=== PATIENT | female | born 1985 | race African-American/Black ===

== ENCOUNTER 2018-06-21 06:16 | Inpatient (IN) | payer BC, MEDICAID ==
[2018-06-21] MEDS ORDERED: ACETAMINOPHEN 325 MG TABLET PO ONE (07:15)
[2018-06-21] MEDS ORDERED: HYDROXYZINE PAMOATE 50 MG CAPSULE PO ONE (07:16)
[2018-06-21] MEDS ORDERED: ACETAMINOPHEN 325 MG TABLET ONE (07:17)
[2018-06-21] MEDS ORDERED: HYDROXYZINE PAMOATE 50 MG CAPSULE ONE (07:17)
[2018-06-21 07:59] LABS: URINE AMPHETAMINES SCREEN NEGATIVE; URINE BARBITURATES SCREEN NEGATIVE; URINE BENZODIAZEPINES SCREEN NEGATIVE; URINE COCAINE SCREEN NEGATIVE; URINE MARIJUANA (THC) SCREEN NEGATIVE; URINE METHADONE SCREEN NEGATIVE; URINE PHENCYCLIDINE SCREEN NEGATIVE
[2018-06-21 09:33] LABS: ABSOLUTE LYMPHOCYTES (AUTO) 1.2 10^3/uL (0.5-4.7); ABSOLUTE MONOCYTES (AUTO) 0.9 10^3/uL (0.1-1.4); BASOPHILS % (AUTO) 0.2 % (0-2); EOSINOPHILS % (AUTO) 0.1 % (0-6); HEMATOCRIT 31.6 % (36.0-47.0); HEMOGLOBIN 10.1 g/dL (12.0-15.5); LYMPHOCYTES % (AUTO) 10.6 % (13-45); MEAN CORPUSCULAR HEMOGLOBIN 25.4 pg (27.0-33.4); MEAN CORPUSCULAR VOLUME 79 fl (80-97); MONOCYTES % (AUTO) 7.9 % (3-13); PLATELET COUNT 221 10^3/uL (150-450); RED BLOOD COUNT 3.98 10^6/uL (3.72-5.28); RED CELL DISTRIBUTION WIDTH 15.6 % (11.5-14.0); SEGMENTED NEUTROPHILS % (AUTO) 81.2 % (42-78); TOTAL CELLS COUNTED % (AUTO) 100 %
[2018-06-21] MEDS ORDERED: NALBUPHINE HCL INJ 10 MG/1 ML AMPULE ONE ×2 (09:39→13:49)
[2018-06-21] MEDS ORDERED: PROMETHAZINE HCL INJ 25 MG/1 ML VIAL ONE ×2 (09:40→13:49)
[2018-06-21] MEDS: RINGERS SOLUTION,LACTATED 1,000 ML IV PRN ×2 (09:42→12:14)
[2018-06-21] MEDS ORDERED: ONDANSETRON HCL INJ/PF 4 MG/2 ML SDV ONE (10:26)
[2018-06-21] MEDS ORDERED: SUCCINYLCHOLINE CHLORIDE INJ 200 MG/10 ML VIAL ONE (10:26)
[2018-06-21] MEDS ORDERED: DEXAMETHASONE SOD PHOSPHATE INJ 4 MG/1 ML VIAL ONE (10:26)
[2018-06-21] MEDS ORDERED: LIDOCAINE 2% INJ-PF (20 MG/ML) 2 ML AMPUL ONE (10:26)
[2018-06-21] MEDS ORDERED: METOCLOPRAMIDE HCL INJ/PF 10 MG/2 ML SDV ONE (10:26)
[2018-06-21] MEDS ORDERED: PHENYLEPHRINE HCL INJ/PF 10 MG/1 ML SDV ONE (10:26)
[2018-06-21] MEDS ORDERED: OXYTOCIN 10 UNIT/ML VIAL ONE ×2 (10:39→19:16)
[2018-06-21] MEDS ORDERED: LIDOCAINE 1% INJ-PF (10 MG/ML) 30 ML SDV ONE (10:39)
[2018-06-21] MEDS ORDERED: MISOPROSTOL 0.2 MG TABLET ONE (10:39)
[2018-06-21] MEDS ORDERED: OXYTOCIN/NORMAL SALINE 20 UNIT/1,000 ML RTUINJ ONE (10:39)
[2018-06-21] MEDS ORDERED: OXYTOCIN/NORMAL SALINE 20 UNIT/1,000 ML RTUINJ IV PRN ×2 (11:50→20:33)
[2018-06-21 13:37] LABS: APPEARANCE,URINE TURBID; BILIRUBIN,URINE NEGATIVE (NEGATIVE); COLOR,URINE YELLOW; GLUCOSE, URINE NEGATIVE (NEGATIVE); KETONES,URINE TRACE mg/dL (NEGATIVE); LEUKOCYTE ESTERASE,URINE NEGATIVE (NEGATIVE); NITRITE,URINE NEGATIVE (NEGATIVE); PROTEIN,URINE 30 mg/dL (NEGATIVE); URINE SPECIFIC GRAVITY 1.024
[2018-06-21] MEDS ORDERED: PROMETHAZINE HCL INJ 25 MG/1 ML VIAL IV ONE (13:44)
[2018-06-21] MEDS ORDERED: NALBUPHINE HCL INJ 10 MG/1 ML AMPULE INJ ONE (13:46)
[2018-06-21 13:48] LABS: UR PRO/CREAT RATIO RESULT 0.1 mg/mg (0.0-0.2); URINE PROTEIN 11.4 mg/dL (<12)
[2018-06-21 13:55] LABS: ABSOLUTE MONOCYTES (AUTO) 0.9 10^3/uL (0.1-1.4); ABSOLUTE NEUT (AUTO) 10.6 10^3/uL (1.7-8.2); BASOPHILS % (AUTO) 0.2 % (0-2); HEMATOCRIT 30.1 % (36.0-47.0); HEMOGLOBIN 9.7 g/dL (12.0-15.5); MEAN CORPUSCULAR HEMOGLOBIN 25.3 pg (27.0-33.4); MEAN CORPUSCULAR HGB CONC 32.1 g/dL (32.0-36.0); MEAN CORPUSCULAR VOLUME 79 fl (80-97); MONOCYTES % (AUTO) 7.1 % (3-13); PLATELET COUNT 216 10^3/uL (150-450); RED BLOOD COUNT 3.82 10^6/uL (3.72-5.28); RED CELL DISTRIBUTION WIDTH 15.5 % (11.5-14.0); SEGMENTED NEUTROPHILS % (AUTO) 84.7 % (42-78); TOTAL CELLS COUNTED % (AUTO) 100 %; WHITE BLOOD COUNT 12.6 10^3/uL (4.0-10.5)
[2018-06-21 14:15] LABS: ALANINE AMINOTRANSFERASE 25 U/L (9-52); ALBUMIN 3.5 g/dL (3.5-5.0); ALKALINE PHOSPHATASE 137 U/L (38-126); ANION GAP 6 (5-19); ASPARTATE AMINO TRANSFERASE 15 U/L (14-36); BILIRUBIN,DIRECT 0.1 mg/dL (0.0-0.4); BILIRUBIN,TOTAL 0.4 mg/dL (0.2-1.3); BLOOD UREA NITROGEN 3 mg/dL (7-20); CALCIUM 8.6 mg/dL (8.4-10.2); CARBON DIOXIDE 21 mmol/L (22-30); CHLORIDE 109 mmol/L (98-107); GLUCOSE 103 mg/dL (75-110); POTASSIUM 3.9 mmol/L (3.6-5.0); SODIUM 136.4 mmol/L (137-145); TOTAL PROTEIN 6.2 g/dL (6.3-8.2); URIC ACID 3.8 mg/dL (2.5-6.2)
[2018-06-21 16:24] LABS: APPEARANCE,URINE CLEAR; BILIRUBIN,URINE NEGATIVE (NEGATIVE); COLOR,URINE YELLOW; GLUCOSE, URINE NEGATIVE (NEGATIVE); KETONES,URINE TRACE mg/dL (NEGATIVE); LEUKOCYTE ESTERASE,URINE NEGATIVE (NEGATIVE); NITRITE,URINE NEGATIVE (NEGATIVE); PROTEIN,URINE NEGATIVE (NEGATIVE); UROBILINOGEN,URINE NEGATIVE mg/dL (<2.0)
[2018-06-21 16:47] LABS: UR PRO/CREAT RATIO RESULT 0.2 mg/mg (0.0-0.2); URINE CREATININE 84.9 mg/dL (16-327); URINE PROTEIN 13.2 mg/dL (<12)
[2018-06-21] MEDS ORDERED: DIPHENHYDRAMINE HCL 50 MG/ML VIAL ONE (17:07)
[2018-06-21] MEDS ORDERED: DIPHENHYDRAMINE HCL 25 MG CAPSULE PO ONE (17:08)
--- NOTE | 2018-06-21 18:26 | L&D Progress Notes ---
PROGRESS NOTES Datetime Report Generated by CPN: 06/21/2018 18:25 PROGRESS NOTE Comment: Slightly uncomfortble with contractions Wants C/S Slow progress. will reevaluate 1-2 hours, if no progress will deliver VAGINAL EXAM Dilatation: 5 Effacement: 70 Station: -1 Contractions: 2-4 min LAST VAGINAL EXAM-NURSING Dilitation: 5.0 Dilitation: 5.0 Dilitation: 5.0 Dilitation: 2-3 Dilitation: 1.0 Effacement: 70 Effacement: 70 Effacement: 70 Effacement: 70 Effacement: thick Station: -1 Station: -1 Station: -2 Station: -2 Station: -2 FETUS A FHR - Baseline: 140 Accelerations: 15X15 Decelerations: Early FHR Category: Category I SIGNATURE SIGNATURE: [id number] Signature: with User ID: [email or web address] : I personally evaluated and examined the patient in conjunction with the MLP and agree with the assessment, treatment plan and disposition.
--- NOTE | 2018-06-21 18:30 | Admission Physical ---
Datetime Report Generated by CPN: 06/21/2018 18:29 CURRENT ADMISSION Chief Complaint: Uterine Contractions Admit Impression : Active Labor; Ruptured Membranes Admit Plan: Admit to Unit; Initiate Protocol ALLERGIES Medication Allergies: No Medication Allergies: No Known Allergies (06/21/2018) Latex: No Latex Allergies OBSTETRICAL HISTORY EDC: 06/15/2018 00:00 : 5 Para: 3 Term: 3 : 0 SAB: 1 IAB: 0 Ectopic: 0 Livin Cesareans: 1 VBACs: 1 Multiple Births: 0 Gestational Diabetes: No Rh Sensitization: No Incompetent Cervix: No TASIA: No Infertility: No ART Treatment: No Uterine Anomaly: No IUGR: No Hx Previous C/S: Yes Macrosomia: Yes Hx Loss/Stillborn: No PIH: No Hx : No Placenta Previa/Abruption: No Depression/PP Depression: No PTL/PROM: No Post Hemorrhage: No Current Procedures: Ultrasound Obstetrical History Comments: G1: 2010 , boy @ 37 weeks, 6 lbs G2: 2011 C/S for distress, girl @ 38 weeks, 7 lbs G3: 2013 SAB _7 weeks G4: 2014 , girl @ 40 weeks, 9 lbs G5: current SEE RECORDS Alcohol: No Marijuana : No Cocaine: No Other Illicit Drugs: No Cigarettes: Never Smoker. [id number] MEDICAL HISTORY Diabetes: No Blood Transfusion: No Pulmonary Disease (Asthma, TB): Yes Breast Disease: No Hypertension: No Parish Worker Surgery: No Heart Disease: No Hosp/Surgery: Yes Autoimmune Disorder: No Anesthetic Complications: No Kidney Disease: No Abnormal Pap Smear: No Neuro/Epilepsy: No Psychiatric Disorders: No Other Medical Diseases: Yes Hepatitis/Liver Disease: No Significant Family History: No Varicosities/Phlebitis: No Trauma/Violence : No Thyroid Dysfunction: No Medical History Comments: asthma, ENT surgery as a child, childbirth, PCOS INFECTIOUS HISTORY Gonorrhea: No Genital Herpes: No Chlamydia: Yes Tuberculosis: No Syphilis: No Hepatitis: No HIV/AIDS Exposure: No Rash or Viral Illness: No HPV: No Infectious History Comments: chlamydia 2018 (TEE negative) PHYSICAL EXAM General: Normal HEENT: Normal Neurologic: Normal Thyroid: Normal Heart: Normal Lungs: Normal Breast: Normal Back: Normal Abdomen: Normal Genitourinary Exam: Normal Extremities: Normal DTRs: Normal Pelvic Type: Adequate VAGINAL EXAM Dilatation: 5 Effacement: 70 Station: -1 Contraction Comments: 2-4 min FETUS A EGA: 40.6 Admit Comment: Term , admit, expect suscessufully VBACK PLANS FOR LABOR AND DELIVERY Labor and Delivery: Other, Specify Pain Management: Medications Feeding Preference: Breast Benefit of Breast Feed Discussed: Yes Circumcision: N/A INFORMED CONSENT Signature: with User ID: [email or web address] : I personally evaluated and examined the patient in conjunction with the MLP and agree with the assessment, treatment plan and disposition.
--- NOTE | 2018-06-21 18:54 | L&D Progress Notes ---
PROGRESS NOTES Datetime Report Generated by CPN: 06/21/2018 18:54 PROGRESS NOTE Impression: Arrest of Dilatation/Descent Plan: Deliver- Section Informed Consent Obtained: Section Delivery Comment: No cervical change, will proceed with C/S Risks, benefits, and alternatives discussed with patient, all questions answered. She verbalizes understanding and wishes to proceed VAGINAL EXAM Dilatation: 5 Effacement: 70 Station: -1 FETUS A FHR - Baseline: 140 Variability: Minimal - Undetectable to <=5bpm Accelerations: 10X10 Decelerations: Early FETUS C SIGNATURE: [id number] SIGNATURE: [id number] Signature: with User ID: [email or web address] : I personally evaluated and examined the patient in conjunction with the MLP and agree with the assessment, treatment plan and disposition.
[2018-06-21] MEDS ORDERED: CITRIC ACID/SODIUM CITRATE ORAL SOLN 15 ML UDCUP ONE (19:06)
[2018-06-21] MEDS ORDERED: CEFAZOLIN 2 GM/D5W RTU 2 GM/50 ML RTUPB IV ONE (19:06)
[2018-06-21] MEDS ORDERED: FENTANYL CITRATE INJ/PF 100 MCG/2 ML AMPUL ONE ×2 (19:16→21:00)
[2018-06-21] MEDS ORDERED: MIDAZOLAM 2 MG/2 ML INJ ONE (19:16)
[2018-06-21] MEDS ORDERED: EPHEDRINE SULFATE INJ 50 MG/1 ML AMPULE ONE (19:16)
[2018-06-21] MEDS ORDERED: FENTANYL CITRATE INJ/PF 250 MCG/5 ML AMPULE ONE (19:16)
[2018-06-21] MEDS ORDERED: PROPOFOL INJ 200 MG/20 ML VIAL IV ONE (19:16)
[2018-06-21] MEDS ORDERED: DIPHENHYDRAMINE HCL 50 MG/ML VIAL IV ONE (19:30)
[2018-06-21] MEDS ORDERED: ONDANSETRON HCL INJ/PF 4 MG/2 ML SDV IV PRN (19:58)
[2018-06-21] MEDS ORDERED: MORPHINE SULFATE 10 MG/ML INJ IV PRN (19:58)
[2018-06-21] MEDS ORDERED: FENTANYL CITRATE INJ/PF 100 MCG/2 ML AMPUL IV PRN ×2 (19:58)
[2018-06-21] MEDS ORDERED: MEPERIDINE HCL/PF INJ 25 MG/1 ML DISP.SYRIN IV PRN (19:58)
[2018-06-21] MEDS ORDERED: PROMETHAZINE HCL INJ 25 MG/1 ML VIAL IV PRN ×3 (19:58→20:33)
[2018-06-21] MEDS ORDERED: DIPHENHYDRAMINE HCL 50 MG/ML VIAL IV PRN (19:58)
[2018-06-21 20:24] LABS: ARTERIAL BLOOD BASE EXCESS -3.8 mmol/L; ARTERIAL BLOOD O2 SATURATION 45.8 % (94-98); ARTERIAL BLOOD PCO2 59.9 mmHg (35-45); ARTERIAL BLOOD PH 7.24 (7.35-7.45); ARTERIAL BLOOD PO2 29.8 mmHg (80-100); ARTERIAL BLOOD TOTAL CO2 26.8 mmol/L (21-25)
[2018-06-21 20:31] LABS: ARTERIAL BLOOD FIO2 CORD BLOOD
[2018-06-21] MEDS ORDERED: ACETAMINOPHEN 325 MG TABLET PO PRN (20:33)
[2018-06-21] MEDS ORDERED: HYDROMORPHONE HCL INJ/PF 2 MG/ML AMPULE IV PRN (20:33)
[2018-06-21] MEDS ORDERED: SIMETHICONE 80 MG TAB.CHEW PO PRN (20:33)
[2018-06-21] MEDS ORDERED: OXYCODONE-ACETAMINOPHEN 5-325 MG TABLET PO PRN (20:33)
[2018-06-21] MEDS ORDERED: DIPH/PERTUSS(ACELL)/TETANUS VAC/PF 0.5 ML SYR (>=10YO) IM PRN (20:33)
[2018-06-21] MEDS ORDERED: MEASLES,MUMPS&RUBELLA VACC/PF 0.5 ML VIAL SUBCUT PRN (20:33)
[2018-06-21] MEDS ORDERED: ACETAMINOPHEN 1,000 MG/100 ML RTUPB IV ONE (20:34)
[2018-06-21] MEDS ORDERED: MEPERIDINE HCL/PF INJ 25 MG/1 ML DISP.SYRIN ONE (20:38)
[2018-06-21] MEDS: FENTANYL CITRATE INJ/PF 100 MCG/2 ML AMPUL IV PRN ×2 (22:00→22:26)
[2018-06-22] MEDS: OXYCODONE-ACETAMINOPHEN 5-325 MG TABLET PO PRN ×5 (00:05→22:50)
[2018-06-22] MEDS: IBUPROFEN 800 MG TABLET PO SCH ×4 (00:06→17:35)
--- NOTE | 2018-06-22 00:08 | Delivery Summary ---
Del Sum A-C Datetime Report Generated by CPN: 06/22/2018 00:07 DELIVERY PERSONNEL DELIVERY PERSONNEL: [id number] Delivery Doctor:: Stephan Irwin MD Anesthesiologist:: Chandler Lora MD GAMING TABLE OPERATOR:: Silvina Dumont CRNA Labor and Delivery Nurse:: Estrellita Read RNoperations director Nurse:: Jeannine Crain RN Warehouse Person:: Estrellita Read RN Neonatal Nurse Practitioner:: MANUEL Oscar Nursery Nurse:: Kathy Riggs RN Nursery Nurse:: Idania Bonner RN Sort Operations Supervisor/FORENSIC COMPUTER EXAMINER: ST Asiya Sort Operations Supervisor/FORENSIC COMPUTER EXAMINER: Serena Fitch, ST MATERNAL INFORMATION Delivery Anesthesia: General Medications After Delivery: Pitocin Bolus-Please Comment Maternal Complications: None LABOR SUMMARY EDC: 06/15/2018 00:00 No. Babies in Womb: 1 Attempted: Yes Labor Anesthesia: None LABOR INFORMATION Reason for Induction: Not Applicable Onset of Labor: 06/21/2018 08:15 Oxytocin: Augmentation Group B Beta Strep: neg Antibiotics # of Doses: 0 Antibiotics Time of Last Dose: N/A Name of Antibiotic Given: N/A Steroids Given: None Reason Steroids Not Administered: Not Applicable MEMBRANES Membranes Rupture Method: Spontaneous Rupture of Membranes: 06/21/2018 09:25 Length of Rupture (hr): 10.30 Amniotic Fluid Color: Clear Amniotic Fluid Amount: Small Amniotic Fluid Odor: Normal STAGES OF LABOR Stage 3 hr: 0 Stage 3 min: 1 Total Time in Labor hr: 11 Total Time in Labor min: 29 VAGINAL DELIVERY Episiotomy: None Laceration #1: None Laceration Extension #1: N/A Laceration Repair: Not Applicable Sponge Count Correct: N/A Sharps Count Correct: N/A CSECTION DELIVERY Primary Indication: Failure to progress CSection Urgency: Non-Scheduled CSection Incidence: Repeat Labor: Labor Elective: Failed CSection Incision: Lower Uterine Transverse BABY A INFORMATION Delivery Date/Time: 06/21/2018 19:43 Method of Delivery: Born in Route : No : Failed Forceps: N/A Vacuum Extraction: N/A Shoulder Dystocia : No PRESENTATION/POSITION BABY A Presentation: Cephalic Cephalic Presentation: Vertex Breech Presentation: N/A PLACENTA INFORMATION BABY A Placenta Delivery Time : 06/21/2018 19:44 Placenta Method of Delivery: Manual Removal Placenta Status: Delivered SCORES BABY A Heart Rate 1 min: >100 bpm Resp Effort 1 min: Good Cry Reflex Irritability 1 min: Cough or Sneeze or Pulls Away Muscle Tone 1 min: Some Flexion of Extremities Color 1 min: Body Cameron, Extremities Blue Resuscitation Effort 1 min: Tactile Stimulation SCORE 1 MIN: 8 Heart Rate 5 min: >100 bpm Resp Effort 5 min: Good Cry Reflex Irritability 5 min: Cough or Sneeze or Pulls Away Muscle Tone 5 min: Active Motion Color 5 min: Body Cameron, Extremities Blue Resuscitation Effort 5 min: Tactile Stimulation SCORE 5 MIN: 9 INFORMATION BABY A Gestational Age at Delivery: 40.6 Gestational Status: Full Term- 39- 40.6 Weeks Infant Outcome : Liveborn Condition : Stable Infant Sex: Female IDENTIFICATION BABY A Infant Verification Date/Time: 06/21/2018 20:13 ID Band Number: [id number] Mother's Name Verified: Yes RN Verifying : KAnupam Brooks, RN Additional Verifying Personnel: BAnupam Crain, RN CORD INFORMATION BABY A No. Cord Vessels: 3 Nuchal Cord : N/A Cord Blood Taken: Yes-For Eval (Mom's Blood Type - or O+) Suction: None ASSESSMENT BABY A Physical Findings- Other: see nursery assessment Respirations: Appears Normal Skin to Skin: Yes Airplane Dispatcher/ALS Called : Yes Care By: Silvana riggs RN Transferred To: Nursery BABY B INFORMATION : N/A SIGNATURES Signature: with User ID: [email or web address] : I was personally available for consultation and serving as supervising physician for the MLP. : I personally evaluated and examined the patient in conjunction with the MLP and agree with the assessment, treatment plan and disposition.
--- NOTE | 2018-06-22 06:12 | OPERATIVE REPORT E ---
Operative Report NAME: PAOLA DUBOIS : 1985 AGE: 33Y DATE OF SURGERY: 06/21/2018 ROOM: 215 PREOPERATIVE DIAGNOSIS: INTRAUTERINE AT TERM, ACTIVE LABOR, WITH FAILURE TO DILATE. POSTOPERATIVE DIAGNOSIS: INTRAUTERINE AT TERM, ACTIVE LABOR, WITH FAILURE TO DILATE. OPERATION: Repeat low transverse section. SURGEON: RENETTA VIEYRA M.D COLOR CONTROL SUPERVISOR: *------* ANESTHESIA: General. ESTIMATED BLOOD LOSS: 700 mL FINDINGS: From a gravid uterus, there was a female delivered with Apgars of 8 and 9, weighing 7 pounds 15 ounces. It should be noted there was a massive band of adhesions from the anterior lower uterus to the bladder. PROCEDURE: I discussed the procedure with patient, which included risks, benefits, as well as alternatives. She was taken to the operating room, placed in a supine position, prepped and draped in the usual sterile manner. General anesthesia was then induced, and then using a sharp scalpel, a Pfannenstiel-type incision was made through an old scar through the skin and subcutaneous tissue to the fascia. The fascia was nicked in the midline and extended bilaterally with the scissors. At this point, the fascia was dissected off of the pyramidalis and recti muscles with both blunt and sharp dissection. The midline of the recti muscles identified, muscles , and the peritoneum was entered bluntly with the surgeon's fingers. The anterior side was then extended superiorly and inferiorly with pressure from the surgeon's hands. Next, the disposable self-retaining Serjio retractor was placed. The lower uterine segment was scored in a transverse manner and the midline was scored then with a knife and the hysterotomy incision was extended bilaterally with pressure from the surgeon's hands. The 's vertex was gently up-lifted out of the pelvis and delivered with a mild amount of fundal pressure. There remainder of the infant was then delivered without difficulty. After delivery of the , the pharynx and nasopharynx were thoroughly suctioned, the cord doubly clamped, and handed to the nursery personnel in attendance. The placenta was then manually removed and the uterus was wiped clean of all blood, blood clot, and membranes. The hysterotomy incision was repaired with #1 chromic in a running locking fashion in 2 layers, with the second closure layer used to invert the initial closure layer. There was a small amount of ooze noted from the midline of the repaired uterine incision, which was controlled with 1 interrupted suture of #1 chromic. The pelvis was then copiously washed with warm normal saline. All blood and blood clots were removed. The pad surrounding the incision was reinspected for bleeding. There was none noted. The self-retaining retractor was then removed and the fascia was reapproximated using 0 Vicryl x2, each of which was started from the corner of the incision, run toward the midline, and tied separately. The subcutaneous tissue was then thoroughly washed and bleeding at this point was controlled with the Bovie. The skin was then reapproximated using a subcuticular stitch of 4-0 Vicryl. All sponge, instrument, and needle counts were reported as correct x3. General anesthesia was then reversed in the operating room and she was subsequently transported to the recovery room in stable condition. DICTATING PHYSICIAN: RENETTA VIEYRA M.D. [id number] Y#: [id number] [id number] ID: [id number] JOB#: [id number] ACCT: [id number] cc:Tamika SKAGGS
[2018-06-22 06:54] LABS: HEMATOCRIT 24.3 % (36.0-47.0); MEAN CORPUSCULAR HEMOGLOBIN 25.3 pg (27.0-33.4); MEAN CORPUSCULAR HGB CONC 31.9 g/dL (32.0-36.0); MEAN CORPUSCULAR VOLUME 79 fl (80-97); PLATELET COUNT 224 10^3/uL (150-450); RED BLOOD COUNT 3.07 10^6/uL (3.72-5.28); RED CELL DISTRIBUTION WIDTH 15.8 % (11.5-14.0); WHITE BLOOD COUNT 22.4 10^3/uL (4.0-10.5)
[2018-06-22 07:30] LABS: HEMOGLOBIN 7.8 g/dL (12.0-15.5)
[2018-06-22] MEDS: FERROUS SULFATE 325 MG TABLET PO SCH ×3 (10:32→18:59)
[2018-06-22] MEDS: DOCUSATE SODIUM 100 MG CAPSULE PO SCH ×2 (10:32→17:34)
[2018-06-22] MEDS: PRENATAL VITAMIN W DHA CAPSULE PO SCH (10:32)
[2018-06-22] MEDS: ASCORBIC ACID 500 MG TABLET PO SCH ×2 (10:33→17:34)
--- NOTE | 2018-06-22 11:34 | PDOC PROGRESS REPORT ---
Subjective-OB Progress Note for:: 06/22/18 Subjective: Pt doing well, no concerns. She has been out of bed x 1, has not voided since FC removal. Ate crackers this morning, denies n/v. Denies Flatus. Denies heavy bleeding. Physical Exam (OB) Vital Signs: Temp Pulse Resp BP Pulse Ox 98.2 F 79 16 114/61 98 06/22/18 07:22 06/22/18 07:22 06/22/18 07:22 06/22/18 07:22 06/22/18 07:22 Intake & Output 06/21/18 06/22/18 06/23/18 06:59 06:59 06:59 Intake Total 1247 Balance 1247 Weight 102.7 kg - Dressing Removed: No - opsite Incision: Dressing, Draining - Lochia Lochia Amount: Small 10-25 ml Lochia Color: Rubra/Red - Abdomen Description: Soft, Round Hernia Present: No Fundal Description: Firm, Midline Fundal Height: u/u - u/2 Objective-Diagnostic Laboratory: 06/22/18 06:43 06/21/18 13:41 06/21/18 06/21/18 06/21/18 06:30 13:22 13:41 WBC RBC Hgb Hct MCV MCH MCHC RDW Plt Count Seg Neutrophils % Lymphocytes % Monocytes % Eosinophils % Basophils % Absolute Neutrophils Absolute Lymphocytes Absolute Monocytes Absolute Eosinophils Absolute Basophils Carbonic Acid HCO3/H2CO3 Ratio ABG pH ABG pCO2 ABG pO2 ABG HCO3 ABG O2 Saturation ABG Base Excess FiO2 Sodium 136.4 L Potassium 3.9 Chloride 109 H Carbon Dioxide 21 L Anion Gap 6 BUN 3 L Creatinine 0.51 L Est GFR ( Amer) > 60 Est GFR (Non-Af Amer) > 60 Glucose 103 Uric Acid 3.8 Calcium 8.6 Total Bilirubin 0.4 AST 15 ALT 25 Alkaline Phosphatase 137 H Total Protein 6.2 L Albumin 3.5 Urine Color YELLOW YELLOW Urine Appearance TURBID CLEAR Urine pH 5.0 5.0 Ur Specific [place] 1.024 1.010 Urine Protein 30 H NEGATIVE Urine Glucose (UA) NEGATIVE NEGATIVE Urine Ketones TRACE H TRACE H Urine Blood NEGATIVE NEGATIVE Urine Nitrite NEGATIVE NEGATIVE Ur Leukocyte Esterase NEGATIVE NEGATIVE Urine WBC (Auto) 4 1 Urine RBC (Auto) 2 6 06/21/18 06/21/18 06/22/18 13:41 19:45 06:43 WBC 12.6 H 22.4 H RBC 3.82 3.07 L Hgb 9.7 L 7.8 L Hct 30.1 L 24.3 L MCV 79 L 79 L MCH 25.3 L 25.3 L MCHC 32.1 31.9 L RDW 15.5 H 15.8 H Plt Count 216 224 Seg Neutrophils % 84.7 H Lymphocytes % 8.0 L Monocytes % 7.1 Eosinophils % 0.0 Basophils % 0.2 Absolute Neutrophils 10.6 H Absolute Lymphocytes 1.0 Absolute Monocytes 0.9 Absolute Eosinophils 0.0 Absolute Basophils 0.0 Carbonic Acid 1.80 H HCO3/H2CO3 Ratio 13:1 ABG pH 7.24 L ABG pCO2 59.9 H ABG pO2 29.8 L* ABG HCO3 25.0 H ABG O2 Saturation 45.8 L ABG Base Excess -3.8 FiO2 CORD BLOOD Sodium Potassium Chloride Carbon Dioxide Anion Gap BUN Creatinine Est GFR ( Amer) Est GFR (Non-Af Amer) Glucose Uric Acid Calcium Total Bilirubin AST ALT Alkaline Phosphatase Total Protein Albumin Urine Color Urine Appearance Urine pH Ur Specific [place] Urine Protein Urine Glucose (UA) Urine Ketones Urine Blood Urine Nitrite Ur Leukocyte Esterase Urine WBC (Auto) Urine RBC (Auto) Assessment and Plan(PN) - Assessment and Plan (1) Status post repeat low transverse section Is this a current diagnosis for this admission?: Yes (2) Limited care Qualifiers: Trimester: unspecified trimester Qualified Code(s): O09.30 - Supervision of with insufficient care, unspecified trimester Is this a current diagnosis for this admission?: Yes - Time Spent with Patient Time with patient: Less than 15 minutes Medications reviewed and adjusted accordingly: Yes - Disposition Anticipated Discharge: Home Within: within 24 hours
[2018-06-23] MEDS: IBUPROFEN 800 MG TABLET PO SCH ×5 (00:41→23:12)
[2018-06-23] MEDS: OXYCODONE-ACETAMINOPHEN 5-325 MG TABLET PO PRN ×4 (05:30→19:12)
[2018-06-23 06:40] LABS: ABSOLUTE EOSINOPHILS # (AUTO) 0.1 10^3/uL (0.0-0.6); ABSOLUTE LYMPHOCYTES (AUTO) 3.1 10^3/uL (0.5-4.7); ABSOLUTE MONOCYTES (AUTO) 1.2 10^3/uL (0.1-1.4); ABSOLUTE NEUT (AUTO) 12.9 10^3/uL (1.7-8.2); BASOPHILS % (AUTO) 0.2 % (0-2); EOSINOPHILS % (AUTO) 0.7 % (0-6); HEMATOCRIT 22.7 % (36.0-47.0); LYMPHOCYTES % (AUTO) 17.6 % (13-45); MEAN CORPUSCULAR HEMOGLOBIN 25.8 pg (27.0-33.4); MEAN CORPUSCULAR HGB CONC 32.1 g/dL (32.0-36.0); MEAN CORPUSCULAR VOLUME 80 fl (80-97); MONOCYTES % (AUTO) 7.2 % (3-13); PLATELET COUNT 225 10^3/uL (150-450); RED BLOOD COUNT 2.82 10^6/uL (3.72-5.28); RED CELL DISTRIBUTION WIDTH 15.9 % (11.5-14.0); SEGMENTED NEUTROPHILS % (AUTO) 74.3 % (42-78); TOTAL CELLS COUNTED % (AUTO) 100 %; WHITE BLOOD COUNT 17.3 10^3/uL (4.0-10.5)
[2018-06-23 07:05] LABS: HEMOGLOBIN 7.3 g/dL (12.0-15.5)
[2018-06-23] MEDS: FERROUS SULFATE 325 MG TABLET PO SCH ×3 (09:50→18:03)
[2018-06-23] MEDS: ASCORBIC ACID 500 MG TABLET PO SCH ×2 (09:50→18:01)
[2018-06-23] MEDS: DOCUSATE SODIUM 100 MG CAPSULE PO SCH ×2 (09:50→18:03)
[2018-06-23] MEDS: PRENATAL VITAMIN W DHA CAPSULE PO SCH (09:50)
--- NOTE | 2018-06-23 11:44 | PDOC PROGRESS REPORT ---
Subjective-OB Progress Note for:: 06/23/18 Subjective: 33yo s/p repeat secondary to failed ppd2. Pumping breast milk without difficulty. Reports she has not voided except for once yesterday after pritchard removal (400mL), also reports she is still not passing gas and has not walked or shower because when she attempted getting up her legs felt numb and has not attempted getting up since. Denies sob/lightheadedness/dizziness or other concerns. Physical Exam (OB) Vital Signs: Temp Pulse Resp BP Pulse Ox 98.6 F 78 16 111/60 100 06/23/18 03:20 06/23/18 03:20 06/23/18 03:20 06/23/18 03:20 06/23/18 03:20 Intake & Output 06/22/18 06/23/18 06/24/18 06:59 06:59 06:59 Intake Total 1247 560 Output Total 400 Balance 1247 160 Weight 102.7 kg - General General Appearance: Appears well In distress: None - PIH/Pre-Eclampsia Headache: Absent Epigastric Pain: No Visual Changes: No - Dressing Removed: No - opsite Incision: Dressing, Draining - small amount of blood noted Closure Type: Steri-Strips - Lochia Lochia Amount: Scant < 10 ml Lochia Color: Rubra/Red Lochia Note: pad is saturated pt states she has not changed it in over 24hrs - Abdomen Description: Soft, Round Hernia Present: No Bowel Sounds: Normoactive Flatus Presence: Absent Stool: No Fundal Description: Firm, Midline Fundal Height: u/u - u/2 Abdomen Note: nontender - Respiratory Respiratory Status: No respiratory distress Breath sounds: Clear - Cardiovascular Rhythm: Regular - Abdominal Distension: No distension - Extremities Upper extremity: Normal inspection Lower extremities: Normal inspection - Neurological Cognition: Normal Orientation: AAOx4 - Psychological Associated symptoms: Normal mood, Flat affect Objective-Diagnostic Laboratory: 06/23/18 06:19 06/21/18 13:41 06/23/18 06:19 WBC 17.3 H RBC 2.82 L Hgb 7.3 L Hct 22.7 L MCV 80 MCH 25.8 L MCHC 32.1 RDW 15.9 H Plt Count 225 Seg Neutrophils % 74.3 Lymphocytes % 17.6 Monocytes % 7.2 Eosinophils % 0.7 Basophils % 0.2 Absolute Neutrophils 12.9 H Absolute Lymphocytes 3.1 Absolute Monocytes 1.2 Absolute Eosinophils 0.1 Absolute Basophils 0.0 Assessment and Plan(PN) - Assessment and Plan (1) Acute blood loss anemia Is this a current diagnosis for this admission?: Yes Plan: increase dietary iron and FeSO4 BID, continue to monitor for s/s of decompensation (2) Anemia complicating , third trimester Is this a current diagnosis for this admission?: Yes Plan: increase dietary iron and FeSO4 BID (3) Failed attempted vaginal after previous delivery Is this a current diagnosis for this admission?: Yes Plan: delivered (4) Status post repeat low transverse section Is this a current diagnosis for this admission?: Yes Plan: routine pp care, continue to monitor for s/s of infection. Continue I&O tracking, will not be discharged today. Discussed need for ambulation and increasing po intake in order to void, will obtain bladder scan if unable to void. Bowel sounds normal-nurse to bring apple and prune juice, will also get up and bathe this am and walk. Reviewed warning s/s and need for continue stay at this time. Also reviewed with Dr. Young. (5) Limited care Qualifiers: Trimester: unspecified trimester Qualified Code(s): O09.30 - Supervision of with insufficient care, unspecified trimester Is this a current diagnosis for this admission?: Yes Plan: delivered - Time Spent with Patient Time with patient: Less than 15 minutes Medications reviewed and adjusted accordingly: Yes - Disposition Anticipated Discharge: Home Within: within 24 hours
[2018-06-23] MEDS ORDERED: BENZOCAINE/MENTHOL AEROSOL SPRAY 56 ML TOP PRN (13:19)
[2018-06-23] MEDS ORDERED: DIBUCAINE 1% OINTMENT 28 GM TP PRN (13:19)
[2018-06-24] MEDS: IBUPROFEN 800 MG TABLET PO SCH ×2 (05:27→12:51)
[2018-06-24] MEDS: OXYCODONE-ACETAMINOPHEN 5-325 MG TABLET PO PRN ×2 (05:56→10:10)
[2018-06-24] MEDS: FERROUS SULFATE 325 MG TABLET PO SCH (10:03)
[2018-06-24] MEDS: PRENATAL VITAMIN W DHA CAPSULE PO SCH (10:03)
[2018-06-24] MEDS: DOCUSATE SODIUM 100 MG CAPSULE PO SCH (10:03)
[2018-06-24] MEDS: ASCORBIC ACID 500 MG TABLET PO SCH (10:03)
--- NOTE | 2018-06-24 11:44 | PDOC PROGRESS REPORT ---
Subjective-OB Progress Note for:: 06/24/18 Subjective: Sitting up in bed, holding baby, feeling good, pain under control, ambulating, eating well Physical Exam (OB) Vital Signs: Temp Pulse Resp BP Pulse Ox 97.9 F 87 16 132/71 H 99 06/24/18 08:06 06/24/18 08:06 06/24/18 08:06 06/24/18 08:06 06/24/18 08:06 Intake & Output 06/23/18 06/24/18 06/25/18 06:59 06:59 06:59 Intake Total 560 450 Output Total 400 Balance 160 450 - PIH/Pre-Eclampsia DTR's: 2 + Clonus: Negative Headache: Absent Epigastric Pain: No Visual Changes: No - Dressing Removed: No Incision: Dressing Closure Type: Sutures - Lochia Lochia Amount: Scant < 10 ml Lochia Color: Rubra/Red - Abdomen Description: Firm Hernia Present: No Fundal Description: Firm Fundal Height: u/u - u/2 Objective-Diagnostic Laboratory: 06/23/18 06:19 06/21/18 13:41 Assessment and Plan(PN) - Assessment and Plan (1) Status post repeat low transverse section Is this a current diagnosis for this admission?: Yes (2) Limited care Qualifiers: Trimester: unspecified trimester Qualified Code(s): O09.30 - Supervision of with insufficient care, unspecified trimester Is this a current diagnosis for this admission?: Yes (3) Acute blood loss anemia Is this a current diagnosis for this admission?: Yes (4) Anemia complicating , third trimester Is this a current diagnosis for this admission?: Yes (5) Failed attempted vaginal after previous delivery Is this a current diagnosis for this admission?: Yes - Time Spent with Patient Time with patient: Less than 15 minutes Medications reviewed and adjusted accordingly: Yes - Disposition Anticipated Discharge: Home Within: within 24 hours
--- NOTE | 2018-06-24 11:50 | PDOC DISCHARGE SUMMARY ---
Final Diagnosis Discharge Date: 06/24/18 - Final Diagnosis (1) Status post repeat low transverse section Is this a current diagnosis for this admission?: Yes (2) Limited care Is this a current diagnosis for this admission?: Yes (3) Acute blood loss anemia Is this a current diagnosis for this admission?: Yes (4) Anemia complicating , third trimester Is this a current diagnosis for this admission?: Yes (5) Failed attempted vaginal after previous delivery Is this a current diagnosis for this admission?: Yes Discharge Data - Discharge Medication Prescriptions: Oxycodone HCl/Acetaminophen [Percocet 5-325 mg Tablet] 1 tab PO Q4HP PRN #20 tablet PRN Reason: Ferrous Sulfate [Feosol 325 mg Tablet] 325 mg PO TID #90 tablet Ibuprofen [Motrin 800 mg Tablet] 800 mg PO Q6 #30 tablet Home Medications: Pnv No.95/Ferrous Fum/Folic AC [ Caplet] 1 each PO DAILY 06/21/18 Ferrous Sulfate [Feosol 325 mg Tablet] 325 mg PO TID #90 tablet 06/24/18 Ibuprofen [Motrin 800 mg Tablet] 800 mg PO Q6 #30 tablet 06/24/18 Oxycodone HCl/Acetaminophen [Percocet 5-325 mg Tablet] 1 tab PO Q4HP PRN #20 tablet 06/24/18 Gestational Age: 40.6 Reason(s) for Admission: Onset of Labor - Pitocin augmentation, PROM Admission Note: revious C/S, desires JEANNE Procedures: NST, Ultrasound Intrapartum Procedure(s): : Low Cervical, Transverse - [place] Data Baby 1 Female at 1 minute: 8 at 5 minutes: 9 Home with Mother: Yes Complications: No - Diagnosis Test Laboratory: Temp Pulse Resp BP Pulse Ox 97.9 F 87 16 132/71 H 99 06/24/18 08:06 06/24/18 08:06 06/24/18 08:06 06/24/18 08:06 06/24/18 08:06 06/21/18 06/21/18 06/21/18 06:30 09:15 13:41 RBC 3.98 3.82 Hgb 10.1 L 9.7 L Hct 31.6 L 30.1 L Urine Opiates Screen NEGATIVE 06/22/18 06/23/18 06:43 06:19 RBC 3.07 L 2.82 L Hgb 7.8 L 7.3 L Hct 24.3 L 22.7 L Urine Opiates Screen - Discharge information/Instructions Discharge Activity: Activity As Tolerated, No Lifting Over 10 Pounds, No Lifting/Push/Pulling, Pelvic Rest Discharge Diet: As Tolerated, Regular Disposition: HOME, SELF-CARE Follow up with: [facility]: 6, Days - Make appt for Saturday
[2018-06-24 13:49] VITALS: BP 127/75
[2018-06-24 14:26] LABS: MEAN CORPUSCULAR HEMOGLOBIN 25.7 pg (27.0-33.4); MEAN CORPUSCULAR HGB CONC 32.2 g/dL (32.0-36.0); MEAN CORPUSCULAR VOLUME 80 fl (80-97); PLATELET COUNT 252 10^3/uL (150-450); RED BLOOD COUNT 2.91 10^6/uL (3.72-5.28); RED CELL DISTRIBUTION WIDTH 16.5 % (11.5-14.0); WHITE BLOOD COUNT 12.5 10^3/uL (4.0-10.5)
[2018-06-24 15:06] LABS: HEMATOCRIT 23.3 % (36.0-47.0); HEMOGLOBIN 7.5 g/dL (12.0-15.5)
== END 2018-06-24 18:45 | disposition home or self-care (01) | DRG 787 ==
LOC: LC 06:16 → LR 08:37 → 2S 22:33
PROVIDERS: ADMIT Obstetrics & Gynecology; ATTEND Obstetrics & Gynecology
PROC: 10D00Z1 Extraction of Products of Conception, Low, Open Approach (ICD-10-PCS; principal; 2018-06-21)
PROC: 4A1HXCZ Monitoring of Products of Conception, Cardiac Rate, External Approach (ICD-10-PCS; 2018-06-21)
DX: O62.2 Other uterine inertia (principal); D62 Acute posthemorrhagic anemia; O34.211 Maternal care for low transverse scar from previous cesarean delivery; Z28.21 Immunization not carried out because of patient refusal; O90.81 Anemia of the puerperium; Z3A.40 40 weeks gestation of pregnancy; Z37.0 Single live birth
CPT/HCPCS: 1961; 36415; 80053; 80307; 81001; 82570; 82803; 83615; 84156; 84550; 85025; 85027; 86592; 86850; 86900; 86901; 94760; 94799; J0131; J0330; J0690; J1100; J1200; J2175; J2250; J2300; J2370; J2405; J2550; J2590; J2704; J2765; J3010; J3490

== ENCOUNTER 2018-07-25 12:03 | Emergency (ER) | payer BC, MEDICAID ==
[2018-07-25 12:10] VITALS: BP 148/91
--- NOTE | 2018-07-25 12:58 | ER Document Report ---
HPI - HPI Time Seen by Provider: 07/25/18 12:35 Pain Level: Denies Context: Patient is a 33-year-old female who presents emergency department with an inquiry about a medication refill. She is on Ritalin, metformin, Prozac, and Xenical. She has been off her medications because she recently had a baby. She was unable to get into her primary care provider's office today and has an appointment for Saturday. She states that she is anxious and she feels angry at times. She denies any suicidal ideation or homicidal ideation. - CONSTITUTIONAL Constitutional: DENIES: Fever, Chills - EENT EENT: DENIES: Sore Throat - NEURO Neurology: DENIES: Headache - CARDIOVASCULAR Cardiovascular: DENIES: Chest pain - RESPIRATORY Respiratory: DENIES: Trouble Breathing, Coughing - GASTROINTESTINAL Gastrointestinal: DENIES: Abdominal Pain, Nausea, Diarrhea - URINARY Urinary: DENIES: Dysuria - REPRODUCTIVE Reproductive: DENIES: : - MUSCULOSKELETAL Musculoskeletal: DENIES: Extremity pain, Back Pain - DERM Skin Color: Normal Skin Problems: None Past Medical History - Social History Smoking Status: Never Smoker Chew tobacco use (# tins/day): No Drug Abuse: None Family History: Reviewed & Not Pertinent Patient has suicidal ideation: No Patient has homicidal ideation: No Renal/ Medical History: Denies: Hx Peritoneal Dialysis Psychiatric Medical History: Reports: Hx Depression Vertical Provider Document - CONSTITUTIONAL Exam Limitations: No Limitations - INFECTION CONTROL TRAVEL OUTSIDE OF THE [place] IN LAST 30 DAYS: No - HEENT HEENT: Atraumatic, Normocephalic - NECK Neck: Normal Inspection - RESPIRATORY Respiratory: No Respiratory Distress - CARDIOVASCULAR Cardiovascular: Regular Rhythm - MUSCULOSKELETAL/EXTREMETIES Musculoskeletal/Extremeties: FROM - NEURO Level of Consciousness: Awake, Alert, Appropriate Motor/Sensory: No Motor Deficit, No Sensory Deficit - DERM Integumentary: Warm, Dry Course - Re-evaluation Re-evalutation: 07/25/18 13:00 The patient would like a refill on her Ritalin and Prozac. I told her that I am unable to refill her Ritalin, but I can give her some Vistaril for home until she is able to see her primary care provider on Saturday. Since patient denies any suicidal or homicidal ideation, she is stable for discharge. She is in agreement's with this plan. Verbal discharge instructions were given to the patient. They verbalized understanding. They are stable for discharge. - Vital Signs Vital signs: Temp Pulse Resp BP Pulse Ox 99.1 F 64 16 148/91 H 96 07/25/18 12:08 07/25/18 12:08 07/25/18 12:08 07/25/18 12:08 07/25/18 12:08 Discharge - Discharge Clinical Impression: Medication refill, Anxiety Condition: Stable Disposition: HOME, SELF-CARE Additional Instructions: You were seen today in the emergency department for medication refill. Unfortunately due to the medications you are on, you need to see your primary care provider to have these medications refilled. Please show up to your appointment on Saturday so you can get your regular medications. In the meantime, you have been given Vistaril a medication for anxiety. Please take as directed. If you have worsening symptoms, feel like you want to hurt yourself or others, or have symptoms that are worrisome to you, please return to the emergency department. Prescriptions: Hydroxyzine Pamoate [Vistaril 50 mg Capsule] 50 mg PO Q6 PRN #10 capsule PRN Reason:
== END 2018-07-25 13:14 | disposition home or self-care (01) ==
LOC: ER 12:03
DX: Z76.0 Encounter for issue of repeat prescription (principal); F41.9 Anxiety disorder, unspecified; Z79.899 Other long term (current) drug therapy
CPT/HCPCS: 99281

== ENCOUNTER 2018-10-11 17:15 | Emergency (ER) | payer BC, MEDICAID ==
--- NOTE | 2018-10-11 17:38 | ER Document Report ---
HPI - HPI Patient complains to provider of: Lacerations to right arm right ankle pain Time Seen by Provider: 10/11/18 17:38 Onset: This morning - 30 this a.m. Quality of pain: Achy Severity: Severe Pain Level: 4 Context: She presents emergency department with small lacerations to her right elbow\arm right ankle pain. Patient reports she rolled her ankle and backed into a picture, that is how she cut her arm. Patient and were drinking alcohol and had a discussion. She reports she feels safe at home. She reports her tetanus is up to date. Declines pain medication. No other complaints such as fever vomiting diarrhea. Has not cleaned her wounds on her elbow Associated Symptoms: None Exacerbated by: Walking Relieved by: Denies Similar symptoms previously: No Recently seen / treated by doctor: No - REPRODUCTIVE LMP: 09/12 Reproductive: DENIES: : Past Medical History - General Information source: Patient Last Menstrual Period: last month - Social History Smoking Status: Current Every Day Smoker Cigarette use (# per day): Yes Frequency of alcohol use: Occasional Drug Abuse: None Lives with: Family Family History: Reviewed & Not Pertinent Patient has suicidal ideation: No Patient has homicidal ideation: No Renal/ Medical History: Denies: Hx Peritoneal Dialysis Psychiatric Medical History: Reports: Hx Depression Surgical Hx: Negative Vertical Provider Document - CONSTITUTIONAL Agree With Documented VS: Yes Exam Limitations: No Limitations General Appearance: WD/WN, No Apparent Distress - nontoxic looking - INFECTION CONTROL TRAVEL OUTSIDE OF THE [place] IN LAST 30 DAYS: No - HEENT HEENT: Atraumatic, Normocephalic - NECK Neck: Normal Inspection, Supple - RESPIRATORY Respiratory: No Respiratory Distress - CARDIOVASCULAR Cardiovascular: Regular Rate - MUSCULOSKELETAL/EXTREMETIES Musculoskeletal/Extremeties: MAEW, FROM, Tender - right ankle ttp, no obvious deformity, good pedal pulse, good cap refill - NEURO Level of Consciousness: Awake, Alert, Appropriate Motor/Sensory: No Motor Deficit - DERM Integumentary: Warm, Dry, Laceration - multiple small lacerations to right elbow, no active bleeding Course - Re-evaluation Re-evalutation: 10/11/18 18:26 X-ray negative for acute fracture lacerations do not need sutures but will be treated with Steri-Strips. Lacerations were cleaned well with normal saline and shur clens. No visible glass particles noted. Patient was instructed that we did not see any glass particles but some may still remain.. Patient was instructed on negative x-ray and also instructed on the importance of keeping her lacerations clean and follow-up with primary care provider. He verbalized understanding to all instructions. 10/11/18 18:55 Patient requesting postop shoe because her she will not fit over the Kehinde wrap. She declined a Grippi sock. Request granted for postop shoe. Carlito GARBER applied. - Vital Signs Vital signs: Temp Pulse Resp BP Pulse Ox 98.2 F 89 16 124/89 H 98 10/11/18 17:23 10/11/18 17:23 10/11/18 17:23 10/11/18 17:23 10/11/18 17:23 - Diagnostic Test Radiology reviewed: Image reviewed, Reports reviewed - neg xray Procedures - Immobilization Right Ankle Immobilizer type: Kehinde wrap, Post-op shoe Performed by: PCT Post-Proc Neuro Vasc Exam: Unchanged from pre-exam Alignment checked and good: Yes - Laceration/Wound Repair Right Elbow Wound length (cm): 0.5 - multiple small lacerations Wound's Depth, Shape: Superficial, Irregular Laceration pre-procedure: Shur-Clens applied Wound Repaired With: Steri-strips Discharge - Discharge Clinical Impression: lacerations right elbow Ankle pain, right Qualifiers: Chronicity: acute Qualified Code(s): M25.571 - Pain in right ankle and joints of right foot Condition: Stable Disposition: HOME, SELF-CARE Instructions: Kehinde Wrap ([facility]), Ice & Elevation ([facility]), Non-Sutured Laceration ([facility]), Care of Steri-Strip Closure ([facility]) Additional Instructions: *You have been evaluated for right ankle pain, right arm laceration *Maintain the kehinde wrap for comfort *Rest/Ice/Elevate ankle Monitor your lacerations for signs of infection such as increasing pain redness swelling discharge. Keep the area clean *Follow up with your primary care provider for a recheck within one week *Take tylenol as indicated for pain *Return to ED for worsening condition, changes, needs Monitor your blood pressure. Your blood pressure was elevated today. This may be because you were anxious, in pain or because you need medication. It is important to follow up with your primary care provider for full evaluation. Forms: Elevated Blood Pressure Referrals: ROSS RUST MD [Primary Care Provider] - Follow up in 3-5 days
--- NOTE | 2018-10-11 18:15 | RADIOLOGY REPORT (SQ) ---
EXAM DESCRIPTION: ANKLE RIGHT COMPLETE COMPLETED DATE/TIME: 10/11/2018 5:40 pm REASON FOR STUDY: twisted right ankle COMPARISON: None. EXAM PARAMETERS: NUMBER OF VIEWS: Three views. TECHNIQUE: AP, lateral and oblique radiographic images acquired of the right ankle. LIMITATIONS: None. FINDINGS: MINERALIZATION: Normal. BONES: No acute fracture or dislocation. No worrisome bone lesions. JOINTS: No effusion. SOFT TISSUES: Lateral soft tissue swelling. No radiopaque foreign body. OTHER: No other significant finding. IMPRESSION: NO FRACTURE. TECHNICAL DOCUMENTATION: JOB ID: [id number] [place]-[id number] 2010 [employer]- All Rights Reserved Reading location - IP/workstation name: [email or web address]
[2018-10-11 19:04] VITALS: BP 124/82
== END 2018-10-11 19:08 | disposition home or self-care (01) ==
LOC: ER 17:15
DX: S51.011A Laceration without foreign body of right elbow, initial encounter (principal); W22.8XXA Striking against or struck by other objects, initial encounter; M25.571 Pain in right ankle and joints of right foot; X50.0XXA Overexertion from strenuous movement or load, initial encounter; F17.210 Nicotine dependence, cigarettes, uncomplicated
CPT/HCPCS: 99283

== ENCOUNTER 2018-11-29 05:20 | Emergency (ER) | payer BC, MEDICAID ==
--- NOTE | 2018-11-29 07:08 | ER Document Report ---
ED General - General Chief Complaint: Vertigo Stated Complaint: DIZZINESS Time Seen by Provider: 11/29/18 06:46 Primary Care Provider: ROSS RUST MD [Primary Care Provider] - Follow up as needed TRAVEL OUTSIDE OF THE [place] IN LAST 30 DAYS: No - HPI Notes: Patient is a 33-year-old female who presents to the emergency department for evaluation of vertigo. She states it started back on November 08. That was her first menstruation after having her baby several months ago. She is no longer breast-feeding. She denies any tinnitus, no hearing loss. She states she has not really had any recent URIs. She denies any associated nausea with it. She states that rolling over in bed, moving her head position rapidly, seems to exacerbate the symptoms. She denies any recent head injuries. She denies any pain associated. - Related Data Allergies/Adverse Reactions: No Known Allergies Allergy (Verified 10/11/18 17:18) Past Medical History - General Information source: Patient - Social History Smoking Status: Never Smoker Frequency of alcohol use: None Drug Abuse: None Family History: Reviewed & Not Pertinent Patient has suicidal ideation: No Patient has homicidal ideation: No - Medical History Medical History: Other - PCOS Renal/ Medical History: Denies: Hx Peritoneal Dialysis Psychiatric Medical History: Reports: Hx Attention Deficit Hyperactivity Disorder, Hx Depression Review of Systems - Review of Systems Constitutional: No symptoms reported EENT: No symptoms reported Cardiovascular: No symptoms reported Respiratory: No symptoms reported Gastrointestinal: No symptoms reported Genitourinary: No symptoms reported Female Genitourinary: No symptoms reported Musculoskeletal: No symptoms reported Skin: No symptoms reported Neurological/Psychological: See HPI Physical Exam - Vital signs Vitals: Temp Pulse Resp BP Pulse Ox 98 F 86 16 139/86 H 98 11/29/18 05:21 11/29/18 05:21 11/29/18 05:21 11/29/18 05:21 11/29/18 05:21 - Notes Notes: Vital signs reviewed, please refer to chart. Head is normocephalic, atraumatic. Pupils equal round, reactive to light. Conjunctive are pink. Bilateral TMs are pearly wilder without effusion, good light reflex noted. Neck is supple without meningismus. Heart is regular rate and rhythm. Lungs are clear to auscultation bilaterally. Abdomen is soft, nontender, normoactive bowel sounds throughout. Extremities without cyanosis, clubbing. Posterior calves are nontender. Peripheral pulses are equal. Skin is warm and dry. Patient is awake and alert, oriented x3. She does have some horizontal nystagmus noted on exam. Otherwise cranial nerves II through XII are grossly intact without focal neurological deficits. Strength was 5/5 bilateral lower extremities. Reflexes are symmetrical. Intact finger nose pain, rapid alternating movements, [id number]. Course - Re-evaluation Re-evalutation: 11/29/18 07:01 Patient presents emergency department for evaluation. Her findings are most consistent with benign positional vertigo. We did discuss the Nas maneuver, meclizine, and the side effect profile associated with it. The patient's blood pressure is mildly elevated, otherwise her vital signs are normal. Her neurological exam is unremarkable with the exception of findings associated with benign positional vertigo. We will try her at home on meclizine. She is told that she may require ENT referral if her symptoms persist. She voiced understanding. She is to return to the ED with worsening or concerning symptoms of any sort. - Vital Signs Vital signs: Temp Pulse Resp BP Pulse Ox 97.8 F 82 18 113/63 99 11/29/18 07:50 11/29/18 07:50 11/29/18 07:50 11/29/18 07:50 11/29/18 07:50 Discharge - Discharge Clinical Impression: Benign paroxysmal positional vertigo Qualifiers: Laterality: unspecified laterality Qualified Code(s): H81.10 - Benign paroxysmal vertigo, unspecified ear Condition: Stable Disposition: HOME, SELF-CARE Instructions: Vertigo ([facility]) Additional Instructions: Rest, stay well-hydrated. Take meclizine as needed for dizziness. Watch for drowsiness with this medication. Follow-up with your primary care provider this week. Return to the emergency department with worsening or new concerning symptoms. Prescriptions: RX: Meclizine HCl 25 mg PO TID PRN #21 tab.chew PRN Reason: Dizziness Referrals: ROSS RUST MD [Primary Care Provider] - Follow up as needed
[2018-11-29] MEDS ORDERED: MECLIZINE HCL 25 MG TABLET PO ONE (07:44)
[2018-11-29 07:52] VITALS: BP 113/63
== END 2018-11-29 07:50 | disposition home or self-care (01) ==
LOC: ER 05:20
DX: H81.10 Benign paroxysmal vertigo, unspecified ear (principal)
CPT/HCPCS: 99283

== ENCOUNTER 2019-01-02 04:48 | Emergency (ER) | payer BC, MEDICAID ==
[2019-01-02] MEDS ORDERED: FAMOTIDINE INJ/PF 20 MG/2 ML SDV IV ONE (05:10)
[2019-01-02] MEDS ORDERED: METHYLPREDNISOLONE INJ 125 MG/2 ML SDV IV ONE (05:10)
[2019-01-02] MEDS ORDERED: EPINEPHRINE INJ/PF 1 MG/1 ML AMPULE IM ONE (05:10)
[2019-01-02] MEDS ORDERED: DIPHENHYDRAMINE HCL 50 MG/ML VIAL IV ONE (05:10)
--- NOTE | 2019-01-02 05:20 | ER Document Report ---
ED Allergic Reaction - General Chief Complaint: Insect Bite Stated Complaint: BUG BITE Time Seen by Provider: 01/02/19 05:06 Primary Care Provider: ROSS RUST MD [Primary Care Provider] - Follow up as needed Notes: Patient is a 33-year-old female that comes emergency department for chief complaint of itching all over, developing rash mainly on her back, chest, and extremities, and she also started getting swelling of the throat with tightness sensation, swelling of the lips, and swelling of the eyelids. Patient states she felt what seemed to be either an insect bite or insect sting over her left thigh area while she was in bed, shortly after that she developed the symptoms. She did not visualize any insect. She has not had this before but this is in multiple family members. She denies any daily medications or past medical history. She denies . TRAVEL OUTSIDE OF THE [place] IN LAST 30 DAYS: No - Related Data Allergies/Adverse Reactions: No Known Allergies Allergy (Verified 10/11/18 17:18) Past Medical History - General Information source: Patient, Relative - Social History Smoking Status: Never Smoker Frequency of alcohol use: None Drug Abuse: None Lives with: Family Family History: Reviewed & Not Pertinent Renal/ Medical History: Denies: Hx Peritoneal Dialysis Psychiatric Medical History: Reports: Hx Attention Deficit Hyperactivity Disorder, Hx Depression - Immunizations Immunizations up to date: Yes Hx Diphtheria, Pertussis, Tetanus Vaccination: Yes Review of Systems - Review of Systems Constitutional: No symptoms reported EENT: See HPI Cardiovascular: No symptoms reported Respiratory: No symptoms reported Gastrointestinal: No symptoms reported Genitourinary: No symptoms reported Female Genitourinary: No symptoms reported Musculoskeletal: No symptoms reported Skin: See HPI Hematologic/Lymphatic: No symptoms reported Neurological/Psychological: No symptoms reported Physical Exam - Vital signs Vitals: Temp Pulse Resp BP Pulse Ox 97.8 F 133 H 19 150/95 H 95 01/02/19 04:50 01/02/19 04:50 01/02/19 04:50 01/02/19 04:50 01/02/19 04:50 - Notes Notes: GENERAL: Alert, flushed, uncomfortable and slightly restless HEAD: Normocephalic, atraumatic. EYES: Pupils equal, round, and reactive to light. Extraocular movements intact. Puffy upper eyelids bilaterally ENT: Oral mucosa moist, tongue midline. Lips are both slightly puffy. Or opharynx unremarkable. Airway patent. Uvula normal. Voice is slightly muffled. NECK: Full range of motion. Supple. Trachea midline. LUNGS: Clear to auscultation bilaterally, no wheezes, rales, or rhonchi. No respiratory distress. HEART: tachycardia, normal rhythm, no murmur ABDOMEN: Soft, non-tender. Non-distended. Bowel sounds present in all 4 quadrants. GENITOURINARY: Deferred EXTREMITIES: Moves all 4 extremities spontaneously. No edema, normal radial and dorsalis pedis pulses bilaterally. No cyanosis. BACK: no cervical, thoracic, lumbar midline tenderness. No saddle anesthesia, normal distal neurovascular exam. Moves all extremities in full range of motion. NEUROLOGICAL: Alert and oriented x3. Normal speech. Cranial nerves II through XII grossly intact. PSYCH: Normal affect, normal mood. SKIN: Scattered urticaria over the chest, back, legs, arms Course - Re-evaluation Re-evalutation: 01/02/19 05:30 Patient is not significantly improved. Her voice no longer sounds slightly muffled, she has significant resolution of the lips and eyelids, the rash is beginning to fade. Patient states she feels much better. She will be monitored closely. 01/02/19 06:18 Patient has been reevaluated twice. Currently she is asymptomatic. Patient will continue to be monitored. Patient reevaluated again, symptoms have completely resolved except for very mild puffiness of the upper eyelids which is still improved from prior. Patient has been here for about 2-1/2 hours. She is requesting to leave. She has had only improvement of symptoms and no new symptoms. She has no hives, no muffled voice, no other concerning findings at this time. She will be placed on steroids, antihistamines, provided with EpiPen, discussed follow-up and return precautions. Patient states understanding and agreement. - Vital Signs Vital signs: Temp Pulse Resp BP Pulse Ox 97.8 F 133 H 20 119/66 96 01/02/19 04:50 01/02/19 04:50 01/02/19 07:01 01/02/19 07:01 01/02/19 07:01 Critical Care Note - Critical Care Note Total time excluding time spent on procedures (mins): 35 - Anaphylaxis Comments: Please allow 35 minutes of critical care time for evaluation and management of patient with anaphylaxis including swelling of the throat, face, and hives. Interventions including epinephrine, steroids, antihistamines. Multiple re- evaluations performed. Time spent discussing details at length with patient. Discharge - Discharge Clinical Impression: Anaphylaxis Qualifiers: Encounter type: initial encounter Qualified Code(s): T78.2XXA - Anaphylactic shock, unspecified, initial encounter Condition: Stable Disposition: HOME, SELF-CARE Additional Instructions: Unfortunately you had anaphylaxis from what appears to be an insect bite or sting. I recommend you take the prednisone as prescribed to completion, the cetirizine and famotidine for 1 week. Follow-up with primary care. In the event of a severe allergic reaction (swelling of the face, tongue, throat, etc.) take the epinephrine pen and return immediately Prescriptions: Cetirizine HCl [24Hour Allergy] 10 mg PO DAILY #30 tablet Epinephrine [Epipen 2-Otis] 0.3 mg IM ASDIR PRN #1 packet PRN Reason: Famotidine [Pepcid 20 mg Tablet] 20 mg PO BID #14 tablet Prednisone [Deltasone 10 mg Tablet] 10 mg PO ASDIR PRN #21 tablet PRN Reason: Referrals: ROSS RUST MD [Primary Care Provider] - Follow up as needed
[2019-01-02 07:33] VITALS: BP 119/66
== END 2019-01-02 07:44 | disposition home or self-care (01) ==
LOC: ER 04:48
DX: T78.2XXA Anaphylactic shock, unspecified, initial encounter (principal); R09.89 Other specified symptoms and signs involving the circulatory and respiratory systems; L50.9 Urticaria, unspecified; R22.0 Localized swelling, mass and lump, head
CPT/HCPCS: 99291; 96372; 96374; 96375; J1200; J0171; J2930; S0028

== ENCOUNTER 2020-03-30 19:45 | Inpatient (IN) | payer MEDICAID ==
[2020-03-30] MEDS ORDERED: ACETAMINOPHEN 325 MG TABLET ONE (22:23)
[2020-03-30] MEDS ORDERED: ACETAMINOPHEN 325 MG TABLET PO PRN (22:26)
[2020-03-30 23:11] LABS: ABSOLUTE EOSINOPHILS # (AUTO) 0.1 10^3/uL (0.0-0.6); ABSOLUTE MONOCYTES (AUTO) 0.8 10^3/uL (0.1-1.4); ABSOLUTE NEUT (AUTO) 5.3 10^3/uL (1.7-8.2); BASOPHILS % (AUTO) 0.4 % (0-2); EOSINOPHILS % (AUTO) 0.7 % (0-6); HEMATOCRIT 25.5 % (36.0-47.0); HEMOGLOBIN 8.5 g/dL (12.0-15.5); LYMPHOCYTES % (AUTO) 24.3 % (13-45); MEAN CORPUSCULAR HEMOGLOBIN 24.5 pg (27.0-33.4); MEAN CORPUSCULAR HGB CONC 33.2 g/dL (32.0-36.0); MEAN CORPUSCULAR VOLUME 74 fl (80-97); MONOCYTES % (AUTO) 9.6 % (3-13); PLATELET COUNT 199 10^3/uL (150-450); RED BLOOD COUNT 3.46 10^6/uL (3.72-5.28); RED CELL DISTRIBUTION WIDTH 16.4 % (11.5-14.0); TOTAL CELLS COUNTED % (AUTO) 100 %; WHITE BLOOD COUNT 8.2 10^3/uL (4.0-10.5)
--- NOTE | 2020-03-31 04:43 | Admission Physical ---
Datetime Report Generated by CPN: 03/31/2020 04:42 CURRENT ADMISSION Chief Complaint: Sent from OB Office for Evaluation and Treatment - Please Specify Chief Complaint Other: at 40.2 wks EGA who was sent from OB office for labor check/NST. She had non-reactive NST in office. Patient arrived here around 8 pm and had eaten at 6-6:30 pm. Her NST at that time was good but she was found to be 40.2 weeks EGA and hx of three prior CS. She had poor care with large gap in care between 19-36 weeks. DIscussed with her and reports she originally wanted to but now wants a RCS scheduled. SInce she is post dates and ate earlier, I will arrange for RCS in the AM. Rapid covid testing done. ALLERGIES Medication Allergies: No Medication Allergies: No Known Allergies (03/30/2020) Latex: No Latex Allergies OBSTETRICAL HISTORY EDC: 03/29/2020 00:00 : 5 Para: 4 Term: 4 : 0 SAB: 0 IAB: 0 Livin Cesareans: 2 Gestational Diabetes: No Rh Sensitization: No Incompetent Cervix: No TASIA: No Infertility: No ART Treatment: No Uterine Anomaly: No IUGR: No Hx Previous C/S: Yes Macrosomia: No Hx Loss/Stillborn: No PIH: No Hx : No Placenta Previa/Abruption: No Depression/PP Depression: No PTL/PROM: No Post Hemorrhage: No Current Procedures: Ultrasound; NST SEE RECORDS Alcohol: No Marijuana : No Cocaine: No Other Illicit Drugs: No Cigarettes: Never Smoker. [id number] MEDICAL HISTORY Diabetes: No Blood Transfusion: No Pulmonary Disease (Asthma, TB): No Breast Disease: No Hypertension: No Fabrication Operator Surgery: No Heart Disease: No Hosp/Surgery: No Autoimmune Disorder: No Anesthetic Complications: No Kidney Disease: No Abnormal Pap Smear: No Neuro/Epilepsy: No Psychiatric Disorders: Yes Other Medical Diseases: No Hepatitis/Liver Disease: No Significant Family History: No Varicosities/Phlebitis: No Trauma/Violence : No Thyroid Dysfunction: No Medical History Comments: ADHD INFECTIOUS HISTORY Gonorrhea: No Genital Herpes: No Chlamydia: No Tuberculosis: No Syphilis: No Hepatitis: No HIV/AIDS Exposure: No Rash or Viral Illness: No HPV: No PHYSICAL EXAM General: Normal HEENT: Normal Neurologic: Normal Thyroid: Normal Heart: Normal Lungs: Normal Breast: Normal Back: Normal Abdomen: Normal Genitourinary Exam: Normal Extremities: Normal DTRs: Normal Pelvic Type: Adequate Vital Signs: Reviewed MEMBRANES Pooling: Negative FETUS A EGA: 40.2 Monitoring: External US FHR- Baseline: 155 Variability: Moderate 6-25bpm Accelerations: 15X15 FHR Category: Category I Presentation: Oblique Admit Comment: at 40.2 wks EGA by 7 weeks US now post dates and history of three prior CSs. She had Non-reacitve NST but currently reactive in triage -Admit to LDR for RCS as she is post dates now and has poor PNC f/u -Patient ate at 6-630pm. Plan for NPO after midnight. -IVFs: LR at 125cc/hr -abdominal prep -Ancef 2 gms IV prior to OR -Plan for repeat CS in am PLANS FOR LABOR AND DELIVERY Feeding Preference: Breast INFORMED CONSENT Informed Consent Obtained: Section Delivery; Risks, Benefits and Alternatives Discussed Signature: with User ID: Solomon : with User ID: [email or web address]
[2020-03-31] MEDS ORDERED: RINGERS SOLUTION,LACTATED 1,000 ML IV ONE ×2 (06:00→07:00)
[2020-03-31] MEDS ORDERED: CEFAZOLIN SODIUM 2 GM in DEXTROSE 5%-WATER 50 ML IV PRN (06:00)
[2020-03-31] MEDS ORDERED: CEFAZOLIN 2 GM/D5W RTU 2 GM/50 ML RTUPB IV ONE (06:56)
[2020-03-31] MEDS ORDERED: CITRIC ACID/SODIUM CITRATE ORAL SOLN 15 ML UDCUP ONE (06:56)
[2020-03-31] MEDS ORDERED: NORMAL SALINE 250 ML IV PRN ×2 (07:16)
[2020-03-31] MEDS ORDERED: CITRIC ACID/SODIUM CITRATE ORAL SOLN 15 ML UDCUP PO PRN (07:32)
[2020-03-31 07:43] LABS: APPEARANCE,URINE TURBID; BILIRUBIN,URINE NEGATIVE (NEGATIVE); COLOR,URINE YELLOW; GLUCOSE, URINE NEGATIVE (NEGATIVE); KETONES,URINE NEGATIVE (NEGATIVE); LEUKOCYTE ESTERASE,URINE NEGATIVE (NEGATIVE); NITRITE,URINE NEGATIVE (NEGATIVE); PROTEIN,URINE 30 mg/dL (NEGATIVE); URINE SPECIFIC GRAVITY 1.021
[2020-03-31] MEDS ORDERED: EPHEDRINE SULFATE INJ 50 MG/1 ML AMPULE ONE (07:58)
[2020-03-31] MEDS ORDERED: OXYTOCIN 10 UNIT/ML VIAL ONE (07:58)
[2020-03-31] MEDS ORDERED: ACETAMINOPHEN 1,000 MG/100 ML RTUPB IV ONE (07:58)
[2020-03-31] MEDS ORDERED: PHENYLEPHRINE HCL INJ/PF 10 MG/1 ML SDV ONE (07:58)
[2020-03-31] MEDS ORDERED: MIDAZOLAM 2 MG/2 ML INJ ONE (07:58)
[2020-03-31] MEDS ORDERED: FENTANYL CITRATE INJ/PF 100 MCG/2 ML AMPUL ONE (07:58)
[2020-03-31] MEDS ORDERED: ONDANSETRON HCL INJ/PF 4 MG/2 ML SDV ONE (07:58)
[2020-03-31] MEDS ORDERED: KETOROLAC TROMETHAMINE INJ/PF 30 MG/1 ML SDV ONE (07:58)
[2020-03-31] MEDS ORDERED: OXYTOCIN/0.9 % SODIUM CHLORIDE 30 UNIT/500 ML RTUINJ ONE (07:58)
[2020-03-31] MEDS ORDERED: DEXAMETHASONE SOD PHOSPHATE INJ 4 MG/1 ML VIAL ONE (07:59)
[2020-03-31] MEDS ORDERED: HYDROMORPHONE HCL INJ/PF 2 MG/ML AMPULE ONE ×2 (07:59→10:36)
[2020-03-31] MEDS ORDERED: OXYCODONE-ACETAMINOPHEN 5-325 MG TABLET PO PRN (08:00)
[2020-03-31] MEDS ORDERED: RINGERS SOLUTION,LACTATED 1,000 ML IV PRN (08:00)
[2020-03-31] MEDS ORDERED: ACETAMINOPHEN 325 MG TABLET PO PRN (08:00)
[2020-03-31] MEDS ORDERED: MEASLES,MUMPS&RUBELLA VACC/PF 0.5 ML VIAL SUBCUT PRN (08:00)
[2020-03-31] MEDS ORDERED: OXYTOCIN/0.9 % SODIUM CHLORIDE 30 UNIT/500 ML RTUINJ IV PRN (08:00)
[2020-03-31] MEDS ORDERED: DIPH/PERTUSS(ACELL)/TETANUS VAC/PF 0.5 ML SYR (>=10YO) IM PRN (08:00)
[2020-03-31 08:09] LABS: URINE AMPHETAMINES SCREEN NEGATIVE; URINE BARBITURATES SCREEN NEGATIVE; URINE BENZODIAZEPINES SCREEN NEGATIVE; URINE COCAINE SCREEN NEGATIVE; URINE MARIJUANA (THC) SCREEN NEGATIVE; URINE METHADONE SCREEN NEGATIVE; URINE PHENCYCLIDINE SCREEN NEGATIVE
[2020-03-31] MEDS ORDERED: PROPOFOL INJ 200 MG/20 ML VIAL IV ONE (08:30)
[2020-03-31] MEDS ORDERED: MEPERIDINE HCL/PF INJ 25 MG/1 ML DISP.SYRIN IV PRN (09:31)
--- NOTE | 2020-03-31 09:37 | Operative Report ---
Operative Report DATE OF SURGERY: 03/31/20 PREOPERATIVE DIAGNOSIS: Intrauterine at 40.3 wks. History of 3 prior sections. Severe anemia. Poor care POSTOPERATIVE DIAGNOSIS: Intrauterine at 40.3 wks. History of 3 prior sections. Severe anemia. Poor care. Scar tissue between fascia and anterior abdominal wall-dense OPERATION: Repeat section SURGEON: SAAD WALSH ANESTHESIA: GA TISSUE REMOVED OR ALTERED: Placenta COMPLICATIONS: None ESTIMATED BLOOD LOSS: 1000 INTRAOPERATIVE FINDINGS: Large uterus with multiple small fibroids all less than 1 cm that I could see. Anterior placenta. Viable female infant with Apgars of 8 and 9 at one and five minutes respectfully. Large amount of clear amniotic fluid PROCEDURE: IV fluids: per anesthesia record Urinary output: 250 cc Findings: Large uterus multiple small fibroids all less than 1 cm, bilateral fallopian tubes and ovaries. Placenta grossly normal. Viable female infant with Apgars of 8 and 9, at 1 and 5 minutes respectively. Dense scar tissue between rectus fascia and muscles. Position: To recovery room in stable condition Description of procedure: The patient was taken to the operating room and general anesthesia was administered and found to be adequate. She was then placed on the OR table in the supine position with a slight leftward tilt. Patient was prepped and draped in usual sterile fashion. Ancef 2 gms was given IV prior to the procedure for infection prophylaxis. Timeout was taken. A Pfannenstiel skin incision was then made approximately 3 cm above the pubic symphysis and carried down to level the rectus fascia. The rectus fascia was then nicked in the midline with a scalpel and the fascial incision was extended laterally with use of curved Jimenez scissors. The rectus fascia was then grasped with 2 Kocker clamps elevated and the underlying rectus muscle was dissected off both bluntly and sharply. Scar tissue noted as above. Any bleeding controlled with cautery. The rectus muscles were then split in the midline and the peritoneum was entered. The peritoneal incision was then extended by manually stretching the peritoneum. The bladder blade was positioned. The bladder was noted to be out of harm's way. A scalpel was then used in the lower uterine for the hysterotomy, slowly until amniotomy was obtained a large amount of fluid was noted. The uterine incision was then manually stretched. The was noted to be in vertex postion -deep in the pelvis. Using a hand deep in pelvis, the head was elevated and brought to the hysterotomy incision. The head then delivered with minmal difficulty and a Kiwi was used to guide the head to the hysterotomy incision. No pop-offs. The shoulders and the rest of the body followed immediately. The cord was cut clamped and the was handed off to the nurse awaiting. was crying prior to hand off. The placenta was manually delivered. Using a lap gauze the uterus was cleared of all clots and debris. The uterus was then exteriorized and a bladder blade was repositioned. The uterine incision was then closed with 0 Chromic suture in a running locked fashion. A second layer of the same suture was used in a running locked imbricated fashion. The uterine incision was inspected and one area just left of midline was oozing. A box stitch was placed and then noted to be hemostatic. Retractor was removed. The posterior aspect of the uterus was then inspected and anatomy was seen as above. The uterus was returned to its normal anatomic position within the abdominal cavity. Warm saline irrigation was used to clear all clots and debris from the abdomen. The uterine incision was inspected once more and noted to remain hemostatic. The bladder blade was removed and the peritoneum was closed with 2-0 chromic in a running fashion. The rectus muscles were then reapproximated and the rectus fascia was closed with a #0 loooped PDS in a running fashion. Some oozing of scar tissue and muscle stuck to fascia noted and bovie was used along with surgiseal to obtain hemostasis. The subcutaneous tissue was then inspected and any bleeding was controlled with Bovie electrocautery. The subcutaneous tissue was then closed with 2-0 Plain Gut suture in a running fashion. The skin was then closed with 4-0 Monocryl in a running subcuticular fashion. The skin incision was then clean dried and Dermabond was applied over the skin incision. All instrument sponge and needle counts were correct x3 for the procedure the patient tolerated the procedure well. She will proceed to recovery room in stable condition
[2020-03-31] MEDS ORDERED: MEPERIDINE HCL/PF INJ 25 MG/1 ML DISP.SYRIN ONE (09:55)
[2020-03-31] MEDS: HYDROMORPHONE HCL INJ/PF 2 MG/ML AMPULE IV PRN ×3 (10:38→20:49)
--- NOTE | 2020-03-31 10:58 | Delivery Summary ---
Del Sum A-C Datetime Report Generated by CPN: 03/31/2020 10:58 DELIVERY PERSONNEL DELIVERY PERSONNEL: [id number] Delivery Doctor:: Dr. Smiley RECONDITIONER:: Sae Lopez CRNA Labor and Delivery Nurse:: Amee Quevedo RN Measuring Machine Tender:: Amee Qeuvedo RN Neonatal Nurse Practitioner:: MANUEL Sanders Nursery Nurse:: Jaymie Pineda RN Endband Cutter Hand/TAX SERVICES PROFESSIONAL: Liliane Cottrell CST Endband Cutter Hand/TAX SERVICES PROFESSIONAL: Ngoc Garcia, SUPERVISOR [employer] FLOOR WORKER MATERNAL INFORMATION Delivery Anesthesia: General Medications After Delivery: Pitocin 30 Units in 500ml NS/D5W; Pitocin Drip 20 Units/1000ml NSS Estimated Blood Loss (ml): 1010 Provider Comments: See operative report for details LABOR SUMMARY EDC: 03/29/2020 00:00 No. Babies in Womb: 1 Attempted: No Labor Anesthesia: None LABOR INFORMATION Reason for Induction: Not Applicable Oxytocin: N/A Group B Beta Strep: negative Antibiotics # of Doses: 0 Name of Antibiotic Given: N/A Steroids Given: None Reason Steroids Not Administered: Not Applicable MEMBRANES Membranes Rupture Method: Artificial Rupture of Membranes: 03/31/2020 08:22 Length of Rupture (hr): 0.03 Amniotic Fluid Color: Clear Amniotic Fluid Amount: Moderate Amniotic Fluid Odor: Normal STAGES OF LABOR Stage 3 hr: 0 Stage 3 min: 2 VAGINAL DELIVERY Episiotomy: None Laceration Extension #1: N/A Laceration Repair: Not Applicable Sponge Count Correct: N/A CSECTION DELIVERY Primary Indication: > 2 Previous C-Sections Secondary Indication: Repeat Elective CSection Urgency: Non-Scheduled CSection Incidence: Repeat Labor: No Labor Elective: Nonelective CSection Incision: Lower Uterine Transverse Uterine Closure: Double-layer closure BABY A INFORMATION Delivery Date/Time: 03/31/2020 08:24 Method of Delivery: Nurse Controlled Delivery: No Born in Route : No : N/A Forceps: N/A Vacuum Extraction: Successful Shoulder Dystocia : No PRESENTATION/POSITION BABY A Presentation: Cephalic Cephalic Presentation: Vertex Breech Presentation: N/A PLACENTA INFORMATION BABY A Placenta Delivery Time : 03/31/2020 08:26 Placenta Method of Delivery: Manual Removal Placenta Status: Delivered SCORES BABY A Heart Rate 1 min: >100 bpm Resp Effort 1 min: Good Cry Reflex Irritability 1 min: Cough or Sneeze or Pulls Away Muscle Tone 1 min: Active Motion Color 1 min: Blue/Pale Resuscitation Effort 1 min: Tactile Stimulation SCORE 1 MIN: 8 Heart Rate 5 min: >100 bpm Resp Effort 5 min: Good Cry Reflex Irritability 5 min: Cough or Sneeze or Pulls Away Muscle Tone 5 min: Active Motion Color 5 min: Body Brier, Extremities Blue Resuscitation Effort 5 min: Tactile Stimulation SCORE 5 MIN: 9 INFANT INFORMATION BABY A Gestational Age at Delivery: 40.2 Gestational Status: Full Term- 39- 40.6 Weeks Infant Outcome : Liveborn Infant Condition : Stable Sex: Female WEIGHT/LENGTH BABY A Birthweight (gm): 3450 Infant Weight (lb): 7 Infant Weight (oz): 10 Length (in): 19.75 Infant Length (cm): 50.17 CORD INFORMATION BABY A No. Cord Vessels: 3 Nuchal Cord : N/A Cord Blood Taken: Yes-For Eval (Mom's Blood Type - or O+) Infant Suction: Mouth ASSESSMENT BABY A Infant Complications: None Physical Findings at Delivery: Within Normal Limits Skin to Skin: No BABY B INFORMATION : N/A SIGNATURES Signature: with User ID: Solomon : with User ID: Solomon
--- NOTE | 2020-03-31 10:59 | Birth Certificate Data ---
Cert Data Datetime Report Generated by [facility]: 03/31/2020 10:58 CERTIFICATE DATA Delivery Provider: Dr. Smiley (03/30/2020 19:53:MANUEL Burgos) 47a. Care: No (Annotations: Data stored by [facility] on behalf of user) (03/30/2020 19:53:Madai Good RN) 48a. Number of Prev Live Births: 4 (03/30/2020 19:53:Nilsa De Souza RN) 48b. Now Livin (03/30/2020 19:53:Nilsa De Souza RN) 48c. Live Births Now : 1 (03/30/2020 19:53:QS system process) 48e. Losses: 0 (03/30/2020 19:53:Cee Lucero RN) RISK FACTORS IN THIS 49a. Diabetes: No (03/30/2020 19:53:Nilsa De Souza RN) 49b. Hypertension: No (03/30/2020 19:53:Nilsa De Souza RN) 49c. Previous Births: 0 (03/30/2020 19:53:Nilsa De Souza RN) 49d. Stillborns: No (03/30/2020 19:53:Nilsa De Souza RN) 49d. IUGR: No (03/30/2020 19:53:Nilsa De Souza RN) 49e. Infertility Treatment: No (03/30/2020 19:53:Nilsa De Souza RN) 49f. Previous Cesareans: 2 (03/30/2020 19:53:Nilsa De Souza RN) Mother's Height 50b. Height Inches: 62 (03/30/2020 20:22:QS system process) Mother's Weight 51b. Weight at Delivery (lbs): 220 (03/30/2020 20:22:QS system process) Infections Present/Treated 53a. Gonorrhea: No (03/30/2020 19:53:Nilsa De Souza RN) Results this Hospital Visit : Negative (03/30/2020 19:53:Nilsa De Souza RN) 53b. Syphilis: No (03/30/2020 19:53:Nilsa De Souza RN) Results this Hospital Visit: NONREACTIVE (03/30/2020 22:46:QS system process) 53c. Chlamydia: Yes (03/30/2020 19:53:Cee Lucero RN) Results this Hospital Visit: Negative (03/30/2020 19:53:Nilsa De Souza RN) 53d. Hepatitis B: No (03/30/2020 19:53:Nilsa De Souza RN) Results this Hospital Visit: Negative (03/30/2020 19:53:Nilsa De Souza RN) 53e. Hepatitis C: Negative (03/30/2020 19:53:Nilsa De Souza RN) 53h. Mother Tested for HBsAG: Yes (03/30/2020 19:53:Cee Lucero RN) 53i. Date Tested: 08/14/2019 00:00 (03/30/2020 19:53:Cee Lucero RN) 53j. Test Result: Negative (03/30/2020 19:53:Nilsa De Souza RN) Obstetric Procedures 54a, b, c. Obstetric Procedures: Ultrasound; NST (03/30/2020 19:53:Nilsa De Souza RN) Cigarette Smoking Cigarette Smoking: Never Smoker. [id number] (03/30/2020 19:53:Nilsa De Souza RN) 55a. 3 Months Before Preg - Ci (03/30/2020 19:53:Cee Lucero RN) 55a. Packs: 0 (03/30/2020 19:53:Cee Lucero RN) 55b. 1st Trimester of Preg- Ci (03/30/2020 19:53:Cee Lucero RN) 55b. Packs: 0 (03/30/2020 19:53:Cee Lucero RN) 55c. 2nd Trimester of Preg- Ci (03/30/2020 19:53:Cee Lucero RN) 55c. Packs: 0 (03/30/2020 19:53:Cee Lucero RN) 55d. 3rd Trimester of Preg- Ci (03/30/2020 19:53:Cee Lucero RN) 55d. Packs: 0 (03/30/2020 19:53:Cee Lucero RN) Onset of Labor 56a. PROM >12 Hrs: 0.03 (03/30/2020 19:53:QS system process) 57a. Induction of Labor: N/A (03/30/2020 19:53:Amee Quevedo RN) 57c. Non-Vertex Presentation A: Vertex (03/30/2020 19:53:Amee Quevedo RN) 57d. Steroids - Lung Mat: None (03/30/2020 19:53:Amee Quevedo RN) 57d. Steroids - Lung Mat: Not Applicable (03/30/2020 19:53:Amee Quevedo RN) 57g. Moderate/Heavy Meconium: Clear (03/30/2020 19:53:Amee Quevedo RN) 57h. Intolerance of Labor: > 2 Previous C-Sections (03/30/2020 19:53:Idania Smiley MD) : Repeat Elective (03/30/2020 19:53:Amee Quevedo RN) 57i. Epidural/Spinal Anesthesia: None (03/30/2020 19:53:Amee Quevedo RN) Method of Delivery 58a. Forceps - Unsuccessful A: N/A (03/30/2020 19:53:Amee Quevedo RN) 58b. Vacuum - Unsuccessful A: Successful (03/30/2020 19:53:Idania Smiley, MD) 58c. Presentation at 58c. Presentation at - A : Vertex (03/30/2020 19:53:Amee Quevedo RN) 58c. Presentation at - A : N/A (03/30/2020 19:53:Amee Quevedo RN) 58c. Presentation at - A : Cephalic (03/30/2020 19:53:MANUEL Burgos) Final Route and Method of Del 58d. Baby A Route/Delivery: (03/30/2020 19:53:Lucas Knowles, [facility]) 58e. Trial of Labor Attempted: No (03/30/2020 19:53:Amee Quevedo RN) 58e. Trial of Labor Attempted A: N/A (03/30/2020 19:53:Amee Quevedo RN) 58e. Trial of Labor Attempted B: N/A (03/30/2020 19:53:Amee Quevedo RN) Birthweight Baby A: 3450 (03/30/2020 19:53:Lucas Knowles, [facility]) 60a. Pounds : 7 (03/30/2020 19:53:QS system process) 60b. Ounces: 10 (03/30/2020 19:53:QS system process) 61. GA at Delivery Baby A: 40.2 (03/30/2020 19:53:Lucas Knowles STAFF [employer] OFFICER) : Full Term- 39- 40.6 Weeks (03/30/2020 19:53:QS system process) 62a. 5 Minute Baby A: 9 (03/30/2020 19:53:QS system process)
[2020-03-31] MEDS ORDERED: DIPHENHYDRAMINE HCL 50 MG/ML VIAL ONE (11:29)
[2020-03-31] MEDS: PRENATAL VITAMIN W DHA CAPSULE PO SCH (14:16)
[2020-03-31] MEDS: DOCUSATE SODIUM 100 MG CAPSULE PO SCH ×2 (14:16→17:17)
[2020-03-31] MEDS ORDERED: SUCCINYLCHOLINE CHLORIDE INJ 200 MG/10 ML VIAL ONE (14:47)
[2020-03-31] MEDS: OXYCODONE-ACETAMINOPHEN 5-325 MG TABLET PO PRN ×2 (17:22→23:23)
[2020-03-31] MEDS: PROMETHAZINE HCL INJ 25 MG/1 ML VIAL IV PRN (17:22)
[2020-04-01] MEDS: OXYCODONE-ACETAMINOPHEN 5-325 MG TABLET PO PRN ×5 (03:59→21:21)
[2020-04-01 08:23] LABS: HEMATOCRIT 27.4 % (36.0-47.0); MEAN CORPUSCULAR HEMOGLOBIN 25.3 pg (27.0-33.4); MEAN CORPUSCULAR HGB CONC 32.9 g/dL (32.0-36.0); MEAN CORPUSCULAR VOLUME 77 fl (80-97); PLATELET COUNT 204 10^3/uL (150-450); RED BLOOD COUNT 3.56 10^6/uL (3.72-5.28); RED CELL DISTRIBUTION WIDTH 17.8 % (11.5-14.0); WHITE BLOOD COUNT 15.9 10^3/uL (4.0-10.5)
[2020-04-01] MEDS: DOCUSATE SODIUM 100 MG CAPSULE PO SCH ×2 (10:06→17:09)
[2020-04-01] MEDS: PRENATAL VITAMIN W DHA CAPSULE PO SCH (10:06)
--- NOTE | 2020-04-01 10:23 | PDOC PROGRESS REPORT ---
Subjective-OB Progress Note for:: 04/01/20 Subjective: Pt doing well, no complaints. She reports light bleeding, reg diet, +flatus, states she has not been out of bed. Physical Exam (OB) Vital Signs: Temp Pulse Resp BP Pulse Ox 97.5 F 67 18 111/80 100 04/01/20 09:00 04/01/20 09:00 04/01/20 09:00 04/01/20 09:00 04/01/20 09:00 Intake & Output 03/31/20 04/01/20 04/02/20 06:59 06:59 06:59 Intake Total 1346 Output Total 700 100 Balance 646 -100 Weight 99.9 kg - PIH/Pre-Eclampsia Clonus: Negative Headache: Absent Epigastric Pain: No Visual Changes: No - Dressing Removed: Yes Incision: Well Approximated Closure Type: Surgical Glue - Maternal Morbidity 59. Maternal Morbidity (serious complications experinced by the mother associated with labor and delivery: None of the above - Lochia Lochia Amount: Scant < 10 ml Lochia Color: Rubra/Red - Abdomen Description: Soft Hernia Present: No Fundal Description: Firm, Midline Fundal Height: u/u - u/2 Objective-Diagnostic Laboratory: 04/01/20 07:31 03/30/20 04/01/20 22:46 07:31 WBC 15.9 H RBC 3.56 L Hgb 9.0 L Hct 27.4 L MCV 77 L MCH 25.3 L MCHC 32.9 RDW 17.8 H Plt Count 204 Blood Type O POSITIVE Antibody Screen NEGATIVE Assessment and Plan(PN) - Assessment and Plan (1) Acute blood loss anemia Is this a current diagnosis for this admission?: Yes (2) Anemia complicating , third trimester Is this a current diagnosis for this admission?: Yes (3) Failed attempted vaginal after previous delivery Is this a current diagnosis for this admission?: Yes (4) Limited care Qualifiers: Trimester: first trimester Qualified Code(s): O09.31 - Supervision of with insufficient care, first trimester Is this a current diagnosis for this admission?: Yes (5) Status post repeat low transverse section Is this a current diagnosis for this admission?: Yes - Time Spent with Patient Time with patient: Less than 15 minutes Medications reviewed and adjusted accordingly: Yes - Disposition Anticipated Discharge Disposition: Home, Self Care Anticipated Discharge Timeframe: within 24 hours
[2020-04-01] MEDS: IBUPROFEN 800 MG TABLET PO SCH ×2 (14:39→21:18)
[2020-04-02] MEDS: OXYCODONE-ACETAMINOPHEN 5-325 MG TABLET PO PRN ×5 (01:46→21:04)
[2020-04-02] MEDS: IBUPROFEN 800 MG TABLET PO SCH ×3 (06:27→21:06)
[2020-04-02] MEDS: DOCUSATE SODIUM 100 MG CAPSULE PO SCH ×2 (09:18→17:10)
[2020-04-02] MEDS: PRENATAL VITAMIN W DHA CAPSULE PO SCH (09:18)
[2020-04-02] MEDS: SIMETHICONE 80 MG TAB.CHEW PO PRN ×2 (11:00→23:45)
[2020-04-02] MEDS: PROMETHAZINE HCL INJ 25 MG/1 ML VIAL IV PRN (11:00)
--- NOTE | 2020-04-02 11:31 | PDOC DISCHARGE SUMMARY ---
Impression - Admit/DC Date/PCP Admission Date/Primary Care Provider: 03/30/20 22:41 SAAD WALSH MD Discharge Date: 04/02/20 - Discharge Diagnosis (1) Acute blood loss anemia Is this a current diagnosis for this admission?: Yes (2) Anemia complicating , third trimester Is this a current diagnosis for this admission?: Yes (3) Failed attempted vaginal after previous delivery Is this a current diagnosis for this admission?: Yes (4) Limited care Is this a current diagnosis for this admission?: Yes (5) Status post repeat low transverse section Is this a current diagnosis for this admission?: Yes - Additional Information Resuscitation Status: Full Code Discharge Activity: Balance Activity w/Rest, No Lifting Over 10 Pounds, No Li fting/Push/Pulling, Pelvic Rest, Slowly Increase Activity, No tub bath Referrals: SAAD WALSH MD [Primary Care Provider] - Prescriptions: Oxycodone HCl/Acetaminophen [Percocet 5-325 mg Tablet] 1 tab PO Q4HP PRN #30 tablet PRN Reason: For Pain Scale 3-5 Ibuprofen [Motrin 800 mg Tablet] 800 mg PO Q8HP PRN #2 tablet PRN Reason: For Pain Scale 1-3 Docusate Sodium [Colace 100 mg Capsule] 100 mg PO BID #60 capsule Home Medications: Pnv No.95/Ferrous Fum/Folic AC [ Caplet] 1 each PO DAILY 06/21/18 Ferrous Sulfate [Feosol 325 mg Tablet] 325 mg PO TID #90 tablet 06/24/18 Fluoxetine HCl [Prozac 20 mg Capsule] 40 mg PO DAILY 03/30/20 Methylphenidate HCl [Ritalin 5 mg Tablet] 50 mg PO 03/30/20 Docusate Sodium [Colace 100 mg Capsule] 100 mg PO BID #60 capsule 04/02/20 Ibuprofen [Motrin 800 mg Tablet] 800 mg PO Q8HP PRN #2 tablet 04/02/20 Oxycodone HCl/Acetaminophen [Percocet 5-325 mg Tablet] 1 tab PO Q4HP PRN #30 tablet 04/02/20 HPI Gestational Age: 40.2 Reason(s) for Admission: Ceasarean Section-Repeat Procedures: NST Intrapartum Procedure(s): : Low Cervical, Transverse Hospital Course 59. Maternal Morbidity (serious complications experinced by the mother associated with labor and delivery: None of the above Results Laboratory Results: WBC 15.9 10^3/uL (4.0-10.5) H 04/01/20 07:31 RBC 3.56 10^6/uL (3.72-5.28) L 04/01/20 07:31 Hgb 9.0 g/dL (12.0-15.5) L 04/01/20 07:31 Hct 27.4 % (36.0-47.0) L 04/01/20 07: MCV 77 fl (80-97) L 04/01/20 07: MCH 25.3 pg (27.0-33.4) L 04/01/20 07: MCHC 32.9 g/dL (32.0-36.0) 04/01/20 07: RDW 17.8 % (11.5-14.0) H 04/01/20 07:31 Plt Count 204 10^3/uL (150-450) 04/01/20 07:31 Lymph % (Auto) 24.3 % (13-45) 03/30/20 22:46 [place] % (Auto) 9.6 % (3-13) 03/30/20 22:46 Eos % (Auto) 0.7 % (0-6) 03/30/20 22:46 Baso % (Auto) 0.4 % (0-2) 03/30/20 22:46 Absolute Neuts (auto) 5.3 10^3/uL (1.7-8.2) 03/30/20 22:46 Absolute Lymphs (auto) 2.0 10^3/uL (0.5-4.7) 03/30/20 22:46 Absolute Monos (auto) 0.8 10^3/uL (0.1-1.4) 03/30/20 22:46 Absolute Eos (auto) 0.1 10^3/uL (0.0-0.6) 03/30/20 22:46 Absolute Basos (auto) 0.0 10^3/uL (0.0-0.2) 03/30/20 22:46 Seg Neutrophils % 65.0 % (42-78) 03/30/20 22:46 Urine Color YELLOW 03/30/20 20:01 Urine Appearance TURBID 03/30/20 20:01 Urine pH 5.0 (5.0-9.0) 03/30/20 20:01 Ur Specific [place] 1.021 03/30/20 20:01 Urine Protein 30 mg/dL (NEGATIVE) H 03/30/20 20:01 Urine Glucose (UA) NEGATIVE mg/dL (NEGATIVE) 03/30/20 20:01 Urine Ketones NEGATIVE mg/dL (NEGATIVE) 03/30/20 20:01 Urine Blood NEGATIVE (NEGATIVE) 03/30/20 20:01 Urine Nitrite NEGATIVE (NEGATIVE) 03/30/20 20:01 Urine Bilirubin NEGATIVE (NEGATIVE) 03/30/20 20:01 Urine Urobilinogen 2.0 mg/dL (<2.0) H 03/30/20 20:01 Ur Leukocyte Esterase NEGATIVE (NEGATIVE) 03/30/20 20:01 Urine Ascorbic Acid 40 (NEGATIVE) H 03/30/20 20:01 Urine Opiates Screen NEGATIVE 03/30/20 20:01 Urine Methadone Screen NEGATIVE 03/30/20 20:01 Ur Barbiturates Screen NEGATIVE 03/30/20 20:01 Ur Phencyclidine Scrn NEGATIVE 03/30/20 20:01 Ur Amphetamines Screen NEGATIVE 03/30/20 20:01 U Benzodiazepines Scrn NEGATIVE 03/30/20 20:01 Urine Cocaine Screen NEGATIVE 03/30/20 20:01 U Marijuana (THC) Screen NEGATIVE 03/30/20 20:01 RPR NONREACTIVE (NONREACTIVE) 03/30/20 22:46 SARS-CoV-2 (PCR) NEGATIVE (NEGATIVE) 03/30/20 22:39 Blood Type O POSITIVE 03/30/20 22:46 Blood Type Confirm O POSITIVE 03/30/20 22:46 Antibody Screen NEGATIVE 03/30/20 22:46 Crossmatch See Detail 03/30/20 22:46 Plan Plan of Treatment: discharge home f/u at [facility] on for incision check discharge planning to see patient today Time Spent: Less than 30 Minutes
[2020-04-03] MEDS: OXYCODONE-ACETAMINOPHEN 5-325 MG TABLET PO PRN ×2 (01:34→10:44)
[2020-04-03] MEDS: IBUPROFEN 800 MG TABLET PO SCH ×2 (05:40→14:42)
[2020-04-03] MEDS: PRENATAL VITAMIN W DHA CAPSULE PO SCH (10:38)
[2020-04-03] MEDS: DOCUSATE SODIUM 100 MG CAPSULE PO SCH (10:38)
[2020-04-03 11:54] VITALS: BP 149/72
--- NOTE | 2020-04-03 12:16 | PDOC PROGRESS REPORT ---
Subjective-OB Progress Note for:: 04/03/20 Subjective: Pt did not have a ride to get home yesterday, was also not passing gas. She is going home today, doing well. Physical Exam (OB) Vital Signs: Temp Pulse Resp BP Pulse Ox 97.7 F 86 18 149/72 H 100 04/03/20 11:50 04/03/20 11:50 04/03/20 11:50 04/03/20 11:50 04/03/20 11:50 Intake & Output 04/02/20 04/03/20 04/04/20 06:59 06:59 06:59 Intake Total 200 940 Output Total 700 Balance -500 940 - Dressing Removed: Yes Incision: Well Approximated Closure Type: Surgical Glue - Maternal Morbidity 59. Maternal Morbidity (serious complications experinced by the mother associated with labor and delivery: None of the above - Lochia Lochia Amount: Small 10-25 ml Lochia Color: Rubra/Red - Abdomen Description: Tender, Soft Hernia Present: No Fundal Description: Firm, Midline Fundal Height: u/u - u/2 Objective-Diagnostic Laboratory: 04/01/20 07:31 Assessment and Plan(PN) - Assessment and Plan (1) Acute blood loss anemia Is this a current diagnosis for this admission?: Yes (2) Anemia complicating , third trimester Is this a current diagnosis for this admission?: Yes (3) Failed attempted vaginal after previous delivery Is this a current diagnosis for this admission?: Yes (4) Limited care Qualifiers: Trimester: first trimester Qualified Code(s): O09.31 - Supervision of with insufficient care, first trimester Is this a current diagnosis for this admission?: Yes (5) Status post repeat low transverse section Is this a current diagnosis for this admission?: Yes - Time Spent with Patient Time with patient: Less than 15 minutes Medications reviewed and adjusted accordingly: Yes - Disposition Anticipated Discharge Disposition: Home, Self Care Anticipated Discharge Timeframe: within 24 hours
== END 2020-04-03 15:10 | disposition home or self-care (01) | DRG 787 ==
LOC: LC 19:45 → LR 22:41 → 2S 03-31 11:37
PROVIDERS: ADMIT Obstetrics & Gynecology; ATTEND Obstetrics & Gynecology
PROC: 10D00Z1 Extraction of Products of Conception, Low, Open Approach (ICD-10-PCS; principal; 2020-03-31)
PROC: 30233N1 Transfusion of Nonautologous Red Blood Cells into Peripheral Vein, Percutaneous Approach (ICD-10-PCS; 2020-03-31)
DX: O34.211 Maternal care for low transverse scar from previous cesarean delivery (principal); D62 Acute posthemorrhagic anemia; O90.81 Anemia of the puerperium; O34.13 Maternal care for benign tumor of corpus uteri, third trimester; Z20.828 Contact with and (suspected) exposure to other viral communicable diseases; Z79.899 Other long term (current) drug therapy; Z3A.40 40 weeks gestation of pregnancy; Z37.0 Single live birth
CPT/HCPCS: 1961; 36415; 36430; 80307; 81005; 85025; 85027; 86592; 86850; 86900; 86901; 86920; 87635; 90715; 94760; 94799; C9803; J0131; J0330; J0690; J1100; J1170; J1200; J1885; J2175; J2250; J2370; J2405; J2550; J2590; J2704; J3010; J3490; J7120; P9016